=== PATIENT | male | born 1980 | race Caucasian/White ===

== ENCOUNTER 2017-02-10 10:10 | Observation (INO) | payer OTHER ==
[~2017-02-10] VITALS: Ht 162.6 cm; Wt 51.5 kg
--- NOTE | 2017-02-10 10:17 | PHYS DOC ---
Adult General Chief Complaint Chief Complaint: SEIZURE HPI HPI Patient is a 36 year old male who presents with seizure activity and a code STEMI. EMS was called for seizure activity. Patient states she has a history of seizure disorders and is supposed be on Depakote however his been taking his girlfriend's seizure medicines because he doesn't feel like Depakote is working. He denies any chest pain, nausea vomiting or shortness of breath. He states he has a seizure couple times a month but today EMS was called because there was some blood on his pajamas his girlfriend did know where they came from. EMS activated code STEMI because they saw ST elevations in V1 and V2. Review of Systems Review of Systems Constitutional: Denies fever or chills [] Eyes: Denies change in visual acuity, redness, or eye pain [] HENT: Denies nasal congestion or sore throat [] Respiratory: Denies cough or shortness of breath [] Cardiovascular: No additional information not addressed in HPI [] GI: Denies abdominal pain, nausea, vomiting, bloody stools or diarrhea [] : Denies dysuria or hematuria [] Musculoskeletal: Denies back pain or joint pain [] Integument: Denies rash or skin lesions [] Neurologic: Denies headache, focal weakness or sensory changes [] Endocrine: Denies polyuria or polydipsia [] Current Medications Current Medications Current Medications Medications (Trade) Dose Ordered Sig/Cindy Start Time Stop Time Status Last Admin Dose Admin Hydralazine HCl (Apresoline) 20 mg 1X ONCE 02/10/17 12:00 02/10/17 12:01 DC 02/10/17 11:53 20 MG Labetalol HCl (Normodyne) 20 mg PRN Q2HR PRN 02/10/17 12:15 02/10/17 12:36 20 MG Ondansetron HCl (Zofran) 4 mg PRN Q8HRS PRN 02/10/17 13:00 02/11/17 12:59 Sodium Chloride 1,000 ml @ 1,000 mls/hr 1X ONCE 02/10/17 12:00 02/10/17 12:59 DC 02/10/17 11:52 1,000 MLS/HR Allergies Allergies Allergies Coded Allergies Type Severity Reaction Last Updated Verified No Known Drug Allergies 02/10/17 No Physical Exam Physical Exam Constitutional: Well developed, well nourished, no acute distress, non-toxic appearance. [] HENT: Normocephalic, atraumatic, bilateral external ears normal, oropharynx moist, no oral exudates, nose normal. [] Eyes: PERRLA, EOMI, conjunctiva normal, no discharge. [] Neck: Normal range of motion, no tenderness, supple, no stridor. [] Cardiovascular:Heart rate regular rhythm, no murmur [] Lungs & Thorax: Bilateral breath sounds clear to auscultation [] Abdomen: Bowel sounds normal, soft, no tenderness, no masses, no pulsatile masses. [] Skin: Warm, dry, no erythema, no rash. [] Back: No tenderness, no CVA tenderness. [] Extremities: No tenderness, no cyanosis, no clubbing, ROM intact, no edema. [] Neurologic: Alert and oriented X 3, normal motor function, normal sensory function, no focal deficits noted. [] Psychologic: Affect normal, judgement normal, mood normal. [] Current Patient Data Vital Signs Vital Signs Date Time Temp Pulse Resp B/P (MAP) Pulse Ox O2 Delivery O2 Flow Rate FiO2 02/10/17 12:36 134 170/97 02/10/17 12:33 18 97 Room Air 02/10/17 10:15 98.6 98.6 Lab Values Laboratory Tests Test 02/10/17 10:16 02/10/17 10:50 White Blood Count 6.4 x10^3/uL (4.0-11.0) Red Blood Count 4.43 x10^6/uL (4.30-5.70) Hemoglobin 14.1 g/dL (13.0-17.5) Hematocrit 40.1 % (39.0-53.0) Mean Corpuscular Volume 91 fL (79-100) Mean Corpuscular Hemoglobin 32 pg (25-35) Mean Corpuscular Hemoglobin Concent 35 g/dL (31-37) Red Cell Distribution Width 12.8 % (11.5-14.5) Platelet Count 180 x10^3/uL (140-400) Neutrophils (%) (Auto) 69 % (31-73) Lymphocytes (%) (Auto) 21 % (24-48) L Monocytes (%) (Auto) 6 % (0-9) Eosinophils (%) (Auto) 3 % (0-3) Basophils (%) (Auto) 1 % (0-3) Neutrophils # (Auto) 4.5 x10^3uL (1.8-7.7) Lymphocytes # (Auto) 1.4 x10^3/uL (1.0-4.8) Monocytes # (Auto) 0.4 x10^3/uL (0.0-1.1) Eosinophils # (Auto) 0.2 x10^3/uL (0.0-0.7) Basophils # (Auto) 0.1 x10^3/uL (0.0-0.2) D-Dimer (Jessie) 1.06 ug/mlFEU (0.00-0.50) H Sodium Level 142 mmol/L (136-145) Potassium Level 3.8 mmol/L (3.5-5.1) Chloride Level 110 mmol/L (98-107) H Carbon Dioxide Level 26 mmol/L (21-32) Anion Gap 6 (6-14) Blood Urea Nitrogen 18 mg/dL (8-26) Creatinine 1.3 mg/dL (0.7-1.3) Estimated GFR (Cockcroft-Gault) 62.8 Glucose Level 116 mg/dL (70-99) H Lactic Acid Level 2.7 mmol/L (0.4-2.0) H Calcium Level 9.0 mg/dL (8.5-10.1) Total Bilirubin 0.3 mg/dL (0.2-1.0) Direct Bilirubin 0.1 mg/dL (0.0-0.2) Aspartate Amino Transferase (AST) 36 U/L (15-37) Alanine Aminotransferase (ALT) 34 U/L (16-63) Alkaline Phosphatase 104 U/L (46-116) Creatine Kinase 92 U/L (39-308) Creatine Kinase MB (Mass) 1.5 ng/mL (0.0-3.6) Creatine Kinase MB Relative Index 1.6 % (0-4) Troponin I Quantitative < 0.017 ng/mL (0.000-0.055) Total Protein 5.7 g/dL (6.4-8.2) L Albumin 2.8 g/dL (3.4-5.0) L Urine Opiates Screen Neg (NEG) Urine Methadone Screen Neg (NEG) Urine Barbiturates Neg (NEG) Urine Phencyclidine Screen Neg (NEG) Urine Amphetamine/Methamphetamine Neg (NEG) Urine Benzodiazepines Screen Neg (NEG) Urine Cocaine Screen Neg (NEG) Urine Cannabinoids Screen Neg (NEG) Urine Ethyl Alcohol Neg (NEG) Laboratory Tests 02/10/17 10:16 Laboratory Tests 02/10/17 10:16 EKG EKG EKG shows sinus tachycardia with a rate of 105 bpm with early repolarization in V2 V3 and [address] elevations in V2 V3, no reciprocal changes, no T-wave inversions noted, normal axis, as interpreted by me. Radiology/Procedures Radiology/Procedures [] Impressions: Accelerated hypertension Seizure disorder Course & Med Decision Making Course & Med Decision Making Pertinent Labs and Imaging studies reviewed. (See chart for details) Patient presented alert and oriented 3 after a seizure. He had an elevated lactic acid. He was tachycardic and received 2 L of normal saline in his blood pressures been elevated greater than 200. He was given hydralazine 2 and then labetalol after his urine drug screen came back negative. He is coughing up a little bit of blood which is likely from his nose but he does have an elevated d -dimer so we will go ahead and perform a CT Angio which is pending at this time. Patient be admitted the hospitalist with cardiology consultation. CT angios pending at this time. My Critical Care: Critical Care Time: 55 minutes Treatments/Evaluations: Close monitoring and treatment of unstable vital signs, cardiorespiratory, and neurologic status, while maintaining tight balance of fluid, respiratory, and cardiac interventions. Dragon Disclaimer Dragon Disclaimer This electronic medical record was generated, in whole or in part, using a voice recognition dictation system. THOM PUGH MD Feb 10, 2017 10:17
[2017-02-10] MEDS ORDERED: IV NORMAL SALINE 1000ML BAG 1,000 ML IV ONE ×2 (10:30→12:00)
[2017-02-10 10:42] LABS: BASO # 0.1 x10^3/uL (0.0-0.2); BASO % 1 % (0-3); EOS % 3 % (0-3); HEMATOCRIT 40.1 % (39.0-53.0); HEMOGLOBIN 14.1 g/dL (13.0-17.5); LYMPH # 1.4 x10^3/uL (1.0-4.8); LYMPH % 21 % (24-48); MEAN CORPUSCULAR HEMOGLOBIN 32 pg (25-35); MEAN CORPUSCULAR HGB CONC 35 g/dL (31-37); MEAN CORPUSCULAR VOLUME 91 fL (79-100); MONO % 6 % (0-9); NEUT % 69 % (31-73); PLATELET COUNT 180 x10^3/uL (140-400); RED BLOOD COUNT 4.43 x10^6/uL (4.30-5.70); RED CELL DISTRIBUTION WIDTH 12.8 % (11.5-14.5); WHITE BLOOD COUNT 6.4 x10^3/uL (4.0-11.0)
--- NOTE | 2017-02-10 10:47 | EKG ---
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
[2017-02-10 10:49] LABS: CREATININE 1.3 mg/dL (0.7-1.3); GFR 62.8; POTASSIUM 3.8 mmol/L (3.5-5.1)
[2017-02-10 11:01] LABS: ALBUMIN 2.8 g/dL (3.4-5.0); DIRECT BILIRUBIN 0.1 mg/dL (0.0-0.2); TOTAL BILIRUBIN 0.3 mg/dL (0.2-1.0); TOTAL PROTEIN 5.7 g/dL (6.4-8.2)
[2017-02-10] MEDS ORDERED: PERA2TAB PO (11:07)
[2017-02-10] MEDS ORDERED: DIVA500T2 PO (11:07)
[2017-02-10 11:13] LABS: BARBITURATES NEG (NEG); BENZODIAZEPINES NEG (NEG); CANNABINOIDS NEG (NEG); COCAINE NEG (NEG); METHADONE NEG (NEG); OPIATES NEG (NEG); PHENCYCLIDINE NEG (NEG)
--- NOTE | 2017-02-10 11:15 | ACF ---
Admission Forms Criteria SEIZURE Clinical Indications for Admission to Inpatient Care (Place 'X' for any and all applicable criteria): Admission is indicated for seizure and ANY ONE of the following(1)(2)(3)(4)(5): [ ]I. Inpatient admission required rather than observation care (Also use Seizure: Observation Care Criteria as appropriate) because of ANY ONE of the following: [ ]a) Altered mental status that is severe or persistent [ ]b) New focal neurologic deficit that is severe or persistent [ ]c) Metabolic disorder (eg, hypoglycemia, hyponatremia) that is severe or persistent [ ]d) Recurrent seizure [ ]e) Outpatient antiseizure regimen cannot be established (eg , patient cannot tolerate medication, initiation requires inpatient care) [ ]f) Need for ongoing intravenous infusion of antiseizure medication [ ]g) Cardiac arrhythmias of immediate concern [ ]h) Cerebral bleeding, hydrocephalus, or vasospasm monitoring (14) [ ]i) Increased intracranial pressure or cerebral edema monitoring (15) [ ]j) Other treatment or monitoring requiring inpatient admission [ ]II. Status epilepticus [A] or repetitive seizures not controlled with emergent treatment (6)(8) [ ]III. Brain disorder (eg, tumor, edema, and hydrocephalus) that requiring monitoring or intervention available only at inpatient level of care. [ ]IV. Brain insult (eg, severe trauma, stroke, drug toxicity, or withdrawal) that requires monitoring or intervention available only at inpatient level of care (10)(11) Extended stay beyond goal length of stay may be needed for (22) [ ]a) Complications of status epilepticus [ ]b) Refractory status epilepticus [ ]c) Etiology-specific therapy for conditions such as RN CLINICAL COORDINATOR infection, head injury,eclampsia, severe metabolic abnormalities, and brain tumor [ ]d) Residual neurologic damage, [ ]e) Initiation of significant change to anticonvulsant treatment [ ]f) Older patients (65 years or older) [ ]g) Patient requiring intubation (eg, to protect airway) The original [employer] content created by [employer] has been revised. The portions of the content which have been revised are identified through the use of italic text or in bold, and [facility] [employer] has neither reviewed nor approved the modified material. All other unmodified content is copyright [facility] [employer]. Please see references footnoted in the original [facility] edition 2016 KESHIA SOLER Feb 10, 2017 11:15
[2017-02-10] MEDS ORDERED: hydrALAZINE 20 MG/ML VIAL. IVP ONE ×2 (11:30→12:00)
[2017-02-10] MEDS: LABETALOL 20 MG/4 ML DISP.SYRIN. IVP PRN (12:36)
[2017-02-10 12:44] LABS: CKMB MASS 1.5 ng/mL (0.0-3.6)
[2017-02-10] MEDS ORDERED: ONDANSETRON PF 4 MG/2 ML VIAL. IV PRN (13:00)
--- NOTE | 2017-02-10 13:00 | PDOC2 ---
CARDIAC CONSULT DATE OF CONSULT Date of Consult DATE: 02/10/17 TIME: 12:56 REASON FOR CONSULT Reason for Consult: HTN REFERRING PHYSICIAN Referring Physician: Feli SOURCE Source: Chart review, Patient HISTORY OF PRESENT ILLNESS HISTORY OF PRESENT ILLNESS This is a pleasant 36 yo male admitted for complains of spitting out blood and apparent seizure. Reports that he is significant for grandmal seziures and the last time he saw a neurologist was 2 months ago (Dr. Farmer) and the last time he had seizure prior was 3-4 weeks ago which he also fell. This morning he felt that he was a little confuse and felt that a seizure was coming on while preparing waffles for his kids. He does not recall going to the bathroom but was noted by his daughter he fell backwards and to the floor and his head was shaking, he was also noted that his lips were slightly turning blue. It was uncertain the duration of this event. After his head shaking was done, he regained consciousness but was still confuse and sat on the chair. He noted that he was coughing out blood. Upon admission he was also noted with sinus tachycardia and high blood pressure. He also has been complaining of mid chest pain which is reproducible with palpation and deep breathing. He is suppose to take depakote but he takes this PRN since it does not work He has been taking perapanel which is a seizure med for his girlfriend but the girlfriend is not taking it so he has been taking instead. He also was taking 2 BP meds which he stopped taking 2 months ago. He has hx of cerebral palsy, seizure since 3 yo, murmur, no prior VTE, childhood heart disease. PAST MEDICAL HISTORY Cardiovascular: Other (murmur) Pulmonary: No pertinent hx CENTRAL NERVOUS SYSTEM: Seizure (grandmal) GI: No pertinent hx Heme/Onc: No pertinent hx Hepatobiliary: No pertinent hx Psych: No pertinent hx Musculoskeletal: Other (No ) Rheumatologic: No pertinent hx Infectious disease: No pertinent hx ENT: No pertinent hx Renal/: No pertinent hx Endocrine: No pertinent hx Dermatology: No pertinent hx PAST SURGICAL HISTORY Past Surgical History: No pertinent history SOCIAL HISTORY Smoke: No ALCOHOL: occassional Drugs: None Lives: with Family CURRENT MEDICATIONS CURRENT MEDICATIONS Current Medications Medications (Trade) Dose Ordered Sig/Cindy Route PRN Reason Start Time Stop Time Status Last Admin Dose Admin Sodium Chloride 1,000 ml @ 1,000 mls/hr 1X ONCE IV 02/10/17 10:30 02/10/17 11:29 DC 02/10/17 10:41 Hydralazine HCl (Apresoline) 10 mg 1X ONCE IVP 02/10/17 11:30 02/10/17 11:31 DC 02/10/17 11:21 Sodium Chloride 1,000 ml @ 1,000 mls/hr 1X ONCE IV 02/10/17 12:00 02/10/17 12:59 02/10/17 11:52 Hydralazine HCl (Apresoline) 20 mg 1X ONCE IVP 02/10/17 12:00 02/10/17 12:01 DC 02/10/17 11:53 Labetalol HCl (Normodyne) 20 mg PRN Q2HR PRN IVP HYPERTENSION, SEE COMMENTS 02/10/17 12:15 02/10/17 12:36 ALLERGIES ALLERGIES: Coded Allergies: No Known Drug Allergies (Unverified , 02/10/17) ROS Review of System 14 point ROS evaluated with pertinent positives noted per HPI PHYSICAL EXAM General: Alert, Oriented X3, Cooperative, No acute distress HEENT: Atraumatic, Mucous membr. moist/pink Lungs: Clear to auscultation, Normal air movement Heart: Regular rate (sinus tachycardia), Normal S1, Normal S2, Other (S3; 2/6 systolic murmur to Apical region) Abdomen: Soft, No tenderness Extremities: No cyanosis, No edema Skin: No breakdown, No significant lesion Neuro: Normal speech, Sensation intact Psych/Mental Status: Mental status NL, Mood NL MUSCULOSKELETAL: Full range of motion without pain VITALS VITALS Vital Signs Date Time Temp Pulse Resp B/P (MAP) Pulse Ox O2 Delivery O2 Flow Rate FiO2 02/10/17 12:36 134 170/97 02/10/17 12:33 18 97 Room Air 02/10/17 10:15 98.6 98.6 LABS Lab: Laboratory Tests Test 02/10/17 10:16 02/10/17 10:50 White Blood Count 6.4 x10^3/uL (4.0-11.0) Red Blood Count 4.43 x10^6/uL (4.30-5.70) Hemoglobin 14.1 g/dL (13.0-17.5) Hematocrit 40.1 % (39.0-53.0) Mean Corpuscular Volume 91 fL (79-100) Mean Corpuscular Hemoglobin 32 pg (25-35) Mean Corpuscular Hemoglobin Concent 35 g/dL (31-37) Red Cell Distribution Width 12.8 % (11.5-14.5) Platelet Count 180 x10^3/uL (140-400) Neutrophils (%) (Auto) 69 % (31-73) Lymphocytes (%) (Auto) 21 % (24-48) Monocytes (%) (Auto) 6 % (0-9) Eosinophils (%) (Auto) 3 % (0-3) Basophils (%) (Auto) 1 % (0-3) Neutrophils # (Auto) 4.5 x10^3uL (1.8-7.7) Lymphocytes # (Auto) 1.4 x10^3/uL (1.0-4.8) Monocytes # (Auto) 0.4 x10^3/uL (0.0-1.1) Eosinophils # (Auto) 0.2 x10^3/uL (0.0-0.7) Basophils # (Auto) 0.1 x10^3/uL (0.0-0.2) D-Dimer (Jessie) 1.06 ug/mlFEU (0.00-0.50) Sodium Level 142 mmol/L (136-145) Potassium Level 3.8 mmol/L (3.5-5.1) Chloride Level 110 mmol/L (98-107) Carbon Dioxide Level 26 mmol/L (21-32) Anion Gap 6 (6-14) Blood Urea Nitrogen 18 mg/dL (8-26) Creatinine 1.3 mg/dL (0.7-1.3) Estimated GFR (Cockcroft-Gault) 62.8 Glucose Level 116 mg/dL (70-99) Lactic Acid Level 2.7 mmol/L (0.4-2.0) Calcium Level 9.0 mg/dL (8.5-10.1) Total Bilirubin 0.3 mg/dL (0.2-1.0) Direct Bilirubin 0.1 mg/dL (0.0-0.2) Aspartate Amino Transf (AST/SGOT) 36 U/L (15-37) Alanine Aminotransferase (ALT/SGPT) 34 U/L (16-63) Alkaline Phosphatase 104 U/L (46-116) Creatine Kinase 92 U/L (39-308) Creatine Kinase MB (Mass) 1.5 ng/mL (0.0-3.6) Creatine Kinase MB Relative Index 1.6 % (0-4) Troponin I Quantitative < 0.017 ng/mL (0.000-0.055) Total Protein 5.7 g/dL (6.4-8.2) Albumin 2.8 g/dL (3.4-5.0) Urine Opiates Screen Neg (NEG) Urine Methadone Screen Neg (NEG) Urine Barbiturates Neg (NEG) Urine Phencyclidine Screen Neg (NEG) Urine Amphetamine/Methamphetamine Neg (NEG) Urine Benzodiazepines Screen Neg (NEG) Urine Cocaine Screen Neg (NEG) Urine Cannabinoids Screen Neg (NEG) Urine Ethyl Alcohol Neg (NEG) ASSESSMENT/PLAN ASSESSMENT/PLAN 1. Accelerated HTN: last BP meds taken 2 months ago 2. Sinus tachycardia: reactive 3. Atypical CP: MSK, likely r/t to fall 4. Seizure/post ictal state: hx of grandmal. 5. Hemoptysis: possible tongue laceration? from seizure. Elevated DDIMER. Positive for tachycardia. Being ruled out for PE. 6. Hx of Murmur 7. Noncompliance 8. Nontraumatic Fall: r/t seizure Recommendations 1. TTE today, CTA pending 2. Start on coreg, lisinopril. 3. TSH. lipid panel 4. Discussed adherence to meds. 5. Neurology consult Problems: NEMESIO TREJO APRN Feb 10, 2017 12:59
[2017-02-10] MEDS ORDERED: CONTRAST GIVEN MC PRN (13:15)
[2017-02-10] MEDS ORDERED: IOHEXOL 300 MG/ML 75 ML VIAL IV ONE (13:30)
[2017-02-10] MEDS ORDERED: MAGNESIUM SULFATE 2GM 50 ML IV ONE (14:00)
--- NOTE | 2017-02-10 14:05 | RAD ---
CTA of the chest with and without contrast Clinical indications: Elevated d-dimer. Shortness of breath. Spitting up of blood. Grand mal seizures. Technique: Noncontrast axial localizer was performed. After IV infusion of 75 cc of Omnipaque 300, helical CT scanning of the chest was performed using the CT pulmonary embolism protocol. A coronal MIP reconstruction was generated. PQRS Compliance Statement: One or more of the following individualized dose reduction techniques were utilized for this examination: 1. Automated exposure control 2. Adjustment of the mA and/or kV according to patient size 3. Use of iterative reconstruction technique Findings: No pulmonary embolism is evident. No focal aneurysmal dilatation or dissection of the thoracic aorta is seen. The heart size is at the upper limits of normal. No pericardial effusion is seen. No enlarged thoracic lymphadenopathy is seen. No adrenal mass is evident. Cysts or hemangiomas of the upper aspect of the spleen are seen. Bilateral 5 lobe groundglass lung infiltrates are seen. No pleural effusion or pneumothorax is evident. The proximal bronchial tree is patent. No rib fracture or compression fracture is seen. IMPRESSION: No pulmonary embolism. Bilateral 5 lobe groundglass lung infiltrates which could represent aspiration pneumonitis or pulmonary edema or pneumonia.
--- NOTE | 2017-02-10 14:17 | PDOC2 ---
NEUROLOGY CONSULT Date of Admission Date of Admission DATE: 02/10/17 TIME: 14:10 Reason for Consult Reason for Consult: Seizures Referring Physician Referring Physician: Dr. Liang PCP: Dr. Alexandra Source Source: Caregiver, Chart review, Patient History of Present Illness History of Present Illness The patient is a 36-year-old right-handed male admitted after a seizure this morning and found to have hypertension. He has had seizures since age 3. He describes generalized convulsions. He has been maintained on Depakote for as long as he remembers. He would like to try a different medication and indeed has stopped the Depakote and has been using his girlfriend's Fycompa. The patient was seeing Dr. Farmer who obtained an EEG, showing findings consistent with epilepsy as well as the patient knows. The patient is planning to go to neurology. There is no history of stroke or head injury. Past Medical History Cardiovascular: HTN CENTRAL NERVOUS SYSTEM: Seizure Past Surgical History Past Surgical History: No pertinent history Family History Family History: No pertinent hx (negative for epilepsy) Social History Social History He has a girlfriend, rare alcohol, no tobacco or street drugs Current Medications Current Medications Current Medications Sodium Chloride 1,000 ml @ 1,000 mls/hr 1X ONCE IV Last administered on 10:41; Start 02/10/17 at 10:30; Stop 02/10/17 at 11:29; Status DC Hydralazine HCl (Apresoline) 10 mg 1X ONCE IVP Last administered on 02/10/17 11:21; Start 02/10/17 at 11:30; Stop 02/10/17 at 11:31; Status DC Sodium Chloride 1,000 ml @ 1,000 mls/hr 1X ONCE IV Last administered on 11:52; Start 02/10/17 at 12:00; Stop 02/10/17 at 12:59; Status DC Hydralazine HCl (Apresoline) 20 mg 1X ONCE IVP Last administered on 02/10/17 11:53; Start 02/10/17 at 12:00; Stop 02/10/17 at 12:01; Status DC Labetalol HCl (Normodyne) 20 mg PRN Q2HR PRN IVP HYPERTENSION, SEE COMMENTS Last administered on 02/10/17 12:36; Start 02/10/17 at 12:15 Ondansetron HCl (Zofran) 4 mg PRN Q8HRS PRN IV NAUSEA/VOMITING; Start 02/10/17 at 13:00; Stop 02/11/17 at 12:59 Iohexol (Omnipaque 300 Mg/ml) 75 ml 1X ONCE IV Last administered on 02/10/17 13:24; Start 02/10/17 at 13:30; Stop 02/10/17 at 13:31; Status DC Info (Do NOT chart on this entry -- for MONITORING) 1 each PRN DAILY PRN MC SEE COMMENTS; Start 02/10/17 at 13:15; Stop 02/12/17 at 13:14 Magnesium Sulfate/ Dextrose 50 ml @ 25 mls/hr 1X ONCE IV Last administered on 02/10/17 13:49; Start 02/10/17 at 14:00; Stop 02/10/17 at 15:59 Carvedilol (Coreg) 6.25 mg BIDWMEALS PO ; Start 02/10/17 at 17:00 Lisinopril (Prinivil) 20 mg DAILY PO ; Start 02/10/17 at 14:30 Active Scripts Active Reported Fycompa (Perampanel) 2 Mg Tablet 2 Mg PO Depakote (Divalproex Sodium) 500 Mg Tablet.dr 1 Tab PO BID Allergies Allergies: Coded Allergies: No Known Drug Allergies (Unverified , 02/10/17) ROS Review of System Patient denies fevers, chills, weight loss, dyspnea, angina, abdominal pain, change in bowels, or dysuria. 14 point review of systems is negative. Physical Exam Physical Examination PHYSICAL EXAMINATION: Vital signs: see above. General appearance is normal and in no acute distress. HEENT: Normocephalic although he does appear to have a very large cranium and a small almost elfin face, nontraumatic. Eyes, nose, ears, and throat are unremarkable. Neck is supple. No lymphadenopathy. No bruits are heard over the carotid artery. No crepitus. NEUROLOGICAL EXAMINATION: Mental Status Examination: Alert. Oriented to time, place, and person. Answers questions and follows commends. Pupils are equal round and reactive to light and accommodation. Extraocular movements are intact. Visual field exam shows no defect on the direct confrontation. No motor or sensory deficits on the facial exam. Uvula in the midline and the soft palate elevated symmetrically. No deviation of the tongue to any direction. Gross hearing is normal. Shoulder shrug normal. Muscle tone is normal. Muscle strength is 5/5. Deep tendon reflexes are 2+ all around. Plantar reflex is with flexion response bilaterally. Tnmtna-af-wzst test performance is accurate. Tandem walk test is accurate. Alternative movements are accurate. Romberg test is negative. Gait is normal. Sensory exam shows no deficits. No cerebellar signs are elicited. Vitals VITALS Vital Signs Date Time Temp Pulse Resp B/P (MAP) Pulse Ox O2 Delivery O2 Flow Rate FiO2 02/10/17 12:36 134 170/97 02/10/17 12:33 18 97 Room Air 02/10/17 10:15 98.6 98.6 Labs Labs Laboratory Tests Test 02/10/17 10:16 02/10/17 10:50 White Blood Count 6.4 x10^3/uL (4.0-11.0) Red Blood Count 4.43 x10^6/uL (4.30-5.70) Hemoglobin 14.1 g/dL (13.0-17.5) Hematocrit 40.1 % (39.0-53.0) Mean Corpuscular Volume 91 fL (79-100) Mean Corpuscular Hemoglobin 32 pg (25-35) Mean Corpuscular Hemoglobin Concent 35 g/dL (31-37) Red Cell Distribution Width 12.8 % (11.5-14.5) Platelet Count 180 x10^3/uL (140-400) Neutrophils (%) (Auto) 69 % (31-73) Lymphocytes (%) (Auto) 21 % (24-48) Monocytes (%) (Auto) 6 % (0-9) Eosinophils (%) (Auto) 3 % (0-3) Basophils (%) (Auto) 1 % (0-3) Neutrophils # (Auto) 4.5 x10^3uL (1.8-7.7) Lymphocytes # (Auto) 1.4 x10^3/uL (1.0-4.8) Monocytes # (Auto) 0.4 x10^3/uL (0.0-1.1) Eosinophils # (Auto) 0.2 x10^3/uL (0.0-0.7) Basophils # (Auto) 0.1 x10^3/uL (0.0-0.2) D-Dimer (Jessie) 1.06 ug/mlFEU (0.00-0.50) Sodium Level 142 mmol/L (136-145) Potassium Level 3.8 mmol/L (3.5-5.1) Chloride Level 110 mmol/L (98-107) Carbon Dioxide Level 26 mmol/L (21-32) Anion Gap 6 (6-14) Blood Urea Nitrogen 18 mg/dL (8-26) Creatinine 1.3 mg/dL (0.7-1.3) Estimated GFR (Cockcroft-Gault) 62.8 Glucose Level 116 mg/dL (70-99) Lactic Acid Level 2.7 mmol/L (0.4-2.0) Calcium Level 9.0 mg/dL (8.5-10.1) Magnesium Level 1.6 mg/dL (1.8-2.4) Total Bilirubin 0.3 mg/dL (0.2-1.0) Direct Bilirubin 0.1 mg/dL (0.0-0.2) Aspartate Amino Transf (AST/SGOT) 36 U/L (15-37) Alanine Aminotransferase (ALT/SGPT) 34 U/L (16-63) Alkaline Phosphatase 104 U/L (46-116) Creatine Kinase 92 U/L (39-308) Creatine Kinase MB (Mass) 1.5 ng/mL (0.0-3.6) Creatine Kinase MB Relative Index 1.6 % (0-4) Troponin I Quantitative < 0.017 ng/mL (0.000-0.055) Total Protein 5.7 g/dL (6.4-8.2) Albumin 2.8 g/dL (3.4-5.0) Thyroid Stimulating Hormone (TSH) 1.261 uIU/mL (0.358-3.74) Urine Opiates Screen Neg (NEG) Urine Methadone Screen Neg (NEG) Urine Barbiturates Neg (NEG) Urine Phencyclidine Screen Neg (NEG) Urine Amphetamine/Methamphetamine Neg (NEG) Urine Benzodiazepines Screen Neg (NEG) Urine Cocaine Screen Neg (NEG) Urine Cannabinoids Screen Neg (NEG) Urine Ethyl Alcohol Neg (NEG) Laboratory Tests Test 02/10/17 10:16 02/10/17 10:50 White Blood Count 6.4 x10^3/uL (4.0-11.0) Red Blood Count 4.43 x10^6/uL (4.30-5.70) Hemoglobin 14.1 g/dL (13.0-17.5) Hematocrit 40.1 % (39.0-53.0) Mean Corpuscular Volume 91 fL (79-100) Mean Corpuscular Hemoglobin 32 pg (25-35) Mean Corpuscular Hemoglobin Concent 35 g/dL (31-37) Red Cell Distribution Width 12.8 % (11.5-14.5) Platelet Count 180 x10^3/uL (140-400) Neutrophils (%) (Auto) 69 % (31-73) Lymphocytes (%) (Auto) 21 % (24-48) Monocytes (%) (Auto) 6 % (0-9) Eosinophils (%) (Auto) 3 % (0-3) Basophils (%) (Auto) 1 % (0-3) Neutrophils # (Auto) 4.5 x10^3uL (1.8-7.7) Lymphocytes # (Auto) 1.4 x10^3/uL (1.0-4.8) Monocytes # (Auto) 0.4 x10^3/uL (0.0-1.1) Eosinophils # (Auto) 0.2 x10^3/uL (0.0-0.7) Basophils # (Auto) 0.1 x10^3/uL (0.0-0.2) D-Dimer (Jessie) 1.06 ug/mlFEU (0.00-0.50) Sodium Level 142 mmol/L (136-145) Potassium Level 3.8 mmol/L (3.5-5.1) Chloride Level 110 mmol/L (98-107) Carbon Dioxide Level 26 mmol/L (21-32) Anion Gap 6 (6-14) Blood Urea Nitrogen 18 mg/dL (8-26) Creatinine 1.3 mg/dL (0.7-1.3) Estimated GFR (Cockcroft-Gault) 62.8 Glucose Level 116 mg/dL (70-99) Lactic Acid Level 2.7 mmol/L (0.4-2.0) Calcium Level 9.0 mg/dL (8.5-10.1) Magnesium Level 1.6 mg/dL (1.8-2.4) Total Bilirubin 0.3 mg/dL (0.2-1.0) Direct Bilirubin 0.1 mg/dL (0.0-0.2) Aspartate Amino Transf (AST/SGOT) 36 U/L (15-37) Alanine Aminotransferase (ALT/SGPT) 34 U/L (16-63) Alkaline Phosphatase 104 U/L (46-116) Creatine Kinase 92 U/L (39-308) Creatine Kinase MB (Mass) 1.5 ng/mL (0.0-3.6) Creatine Kinase MB Relative Index 1.6 % (0-4) Troponin I Quantitative < 0.017 ng/mL (0.000-0.055) Total Protein 5.7 g/dL (6.4-8.2) Albumin 2.8 g/dL (3.4-5.0) Thyroid Stimulating Hormone (TSH) 1.261 uIU/mL (0.358-3.74) Urine Opiates Screen Neg (NEG) Urine Methadone Screen Neg (NEG) Urine Barbiturates Neg (NEG) Urine Phencyclidine Screen Neg (NEG) Urine Amphetamine/Methamphetamine Neg (NEG) Urine Benzodiazepines Screen Neg (NEG) Urine Cocaine Screen Neg (NEG) Urine Cannabinoids Screen Neg (NEG) Urine Ethyl Alcohol Neg (NEG) Assessment/Plan Assessment/Plan Impression: Long-standing epilepsy, breakthrough seizure today. Hypertension, "rule-out" MA Recommendations: I discussed risks, benefits, alternatives, side effects and will start levetiracetam 500 mg twice a day I do not see a need to repeat EEG or MRI studies. Workup per cardiology. Thank you for letting me help with the patient's care. ARCELIA ADHIKARI MD Feb 10, 2017 14:17
[2017-02-10] MEDS: LISINOPRIL 20 MG TABLET PO SCH (14:25)
[2017-02-10 14:29] LABS: CHOLESTEROL/HDL RATIO 3.1
[2017-02-10] MEDS ORDERED: AMLO2.5T PO (15:06)
[2017-02-10] MEDS ORDERED: TRIA1TAB5 PO (15:10)
[2017-02-10] MEDS ORDERED: AMLO10TA2 PO (15:10)
[2017-02-10] MEDS: levETIRAcetam 500 MG TABLET PO SCH ×2 (15:19→20:56)
--- NOTE | 2017-02-10 15:20 | PDOC1 ---
History and Physical Date of Admission Date of Admission DATE: 02/10/17 TIME: 15:19 Identification/Chief Complaint Chief Complaint Seizure Problems: Source Source: Caregiver, Patient History of Present Illness History of Present Illness Mr Caldera is a 36 y/o man with epilepsy since age 3, whoo presented to the ER with gand mal seizure. His girlfriend was more concerned about him "spitting up blood" than the seizure itself. She states that he recently has had bleeding from the mouth with sz, but never in significant amounts. This was decidedly different than before, prompting ER visit. His last sz was about 1 month ago; he has been on depakote for a long time. He himself does not recall any of the episode. EMS on site noted him to be postictal, which had cleared by the time he presented to the ER. His blood pressure was found to be significantly elevated, not responding to labetalol or hydralazine PRN, and he was admitted fir hypertensive urgency. Past Medical History Cardiovascular: HTN Pulmonary: No pertinent hx CENTRAL NERVOUS SYSTEM: Seizure GI: No pertinent hx Heme/Onc: No pertinent hx Hepatobiliary: No pertinent hx Psych: No pertinent hx Musculoskeletal: Other (No ) Rheumatologic: No pertinent hx Infectious disease: No pertinent hx ENT: No pertinent hx Renal/: No pertinent hx Endocrine: No pertinent hx Dermatology: No pertinent hx Past Surgical History Past Surgical History: No pertinent history Family History Family History: Heart Disease Social History Smoke: No ALCOHOL: occassional Drugs: None Current Problem List Problem List Problems Medical Problems: (1) Hypertensive urgency Status: Acute Problems: Current Medications Current Medications Current Medications Sodium Chloride 1,000 ml @ 1,000 mls/hr 1X ONCE IV Last administered on 10:41; Start 02/10/17 at 10:30; Stop 02/10/17 at 11:29; Status DC Hydralazine HCl (Apresoline) 10 mg 1X ONCE IVP Last administered on 02/10/17 11:21; Start 02/10/17 at 11:30; Stop 02/10/17 at 11:31; Status DC Sodium Chloride 1,000 ml @ 1,000 mls/hr 1X ONCE IV Last administered on 11:52; Start 02/10/17 at 12:00; Stop 02/10/17 at 12:59; Status DC Hydralazine HCl (Apresoline) 20 mg 1X ONCE IVP Last administered on 02/10/17 11:53; Start 02/10/17 at 12:00; Stop 02/10/17 at 12:01; Status DC Labetalol HCl (Normodyne) 20 mg PRN Q2HR PRN IVP HYPERTENSION, SEE COMMENTS Last administered on 02/10/17 12:36; Start 02/10/17 at 12:15 Ondansetron HCl (Zofran) 4 mg PRN Q8HRS PRN IV NAUSEA/VOMITING; Start 02/10/17 at 13:00; Stop 02/11/17 at 12:59 Iohexol (Omnipaque 300 Mg/ml) 75 ml 1X ONCE IV Last administered on 02/10/17 13:24; Start 02/10/17 at 13:30; Stop 02/10/17 at 13:31; Status DC Info (Do NOT chart on this entry -- for MONITORING) 1 each PRN DAILY PRN MC SEE COMMENTS; Start 02/10/17 at 13:15; Stop 02/12/17 at 13:14 Magnesium Sulfate/ Dextrose 50 ml @ 25 mls/hr 1X ONCE IV Last administered on 02/10/17 13:49; Start 02/10/17 at 14:00; Stop 02/10/17 at 15:59 Carvedilol (Coreg) 6.25 mg BIDWMEALS PO ; Start 02/10/17 at 17:00 Lisinopril (Prinivil) 20 mg DAILY PO Last administered on 02/10/17 14:25; Start 02/10/17 at 14:30 Levetiracetam (Keppra) 500 mg BID PO ; Start 02/10/17 at 14:30 Active Scripts Active Reported Amlodipine Besylate 10 Mg Tablet 10 Mg PO DAILY Triamterene-Hctz 75-50 Mg Tab (Triamterene/Hydrochlorothiazid) 1 Each Tablet 1 Tab PO DAILY Fycompa (Perampanel) 2 Mg Tablet 2 Mg PO Depakote (Divalproex Sodium) 500 Mg Tablet.dr 1 Tab PO BID Allergies Allergies: Coded Allergies: No Known Drug Allergies (Unverified , 02/10/17) ROS General: No: Chills, Night Sweats, Fatigue, Malaise, Appetite, Other PSYCHOLOGICAL ROS: No: Anxiety Eyes: No Blurry vision, No Decreased vision, No Eye Pain HEENT: No: Heacaches, Nasal discharge, Sore Throat ALLERGY AND IMMUNOLOGY: No: Nasal Congestion Hematological and Lymphatic: No: Bleeding Problems Cardiovascular: No Chest Pain, No Palpitations, No Edema Gastrointestinal: No Nausea, No Vomiting, No Abdominal Pain Genitourinary: YES Frequency, YES Retention Musculoskeletal: Yes Gait Disturbance, Yes Joint Swelling Neurological: No Speech Problems, No Tremors, No Weakness Skin: No Dry Skin Physical Exam General: Alert, Oriented X3, Cooperative, No acute distress HEENT: Atraumatic Lungs: Clear to auscultation Heart: RRR Abdomen: Normal bowel sounds, Soft, No tenderness Extremities: No clubbing, No edema Skin: No rashes Neuro: Normal speech Psych/Mental Status: Mental status NL Vitals Vitals Vital Signs Date Time Temp Pulse Resp B/P (MAP) Pulse Ox O2 Delivery O2 Flow Rate FiO2 02/10/17 14:25 102 177/111 02/10/17 12:33 18 97 Room Air 02/10/17 10:15 98.6 98.6 Labs Labs Laboratory Tests Test 02/10/17 10:16 02/10/17 10:50 White Blood Count 6.4 x10^3/uL (4.0-11.0) Red Blood Count 4.43 x10^6/uL (4.30-5.70) Hemoglobin 14.1 g/dL (13.0-17.5) Hematocrit 40.1 % (39.0-53.0) Mean Corpuscular Volume 91 fL (79-100) Mean Corpuscular Hemoglobin 32 pg (25-35) Mean Corpuscular Hemoglobin Concent 35 g/dL (31-37) Red Cell Distribution Width 12.8 % (11.5-14.5) Platelet Count 180 x10^3/uL (140-400) Neutrophils (%) (Auto) 69 % (31-73) Lymphocytes (%) (Auto) 21 % (24-48) Monocytes (%) (Auto) 6 % (0-9) Eosinophils (%) (Auto) 3 % (0-3) Basophils (%) (Auto) 1 % (0-3) Neutrophils # (Auto) 4.5 x10^3uL (1.8-7.7) Lymphocytes # (Auto) 1.4 x10^3/uL (1.0-4.8) Monocytes # (Auto) 0.4 x10^3/uL (0.0-1.1) Eosinophils # (Auto) 0.2 x10^3/uL (0.0-0.7) Basophils # (Auto) 0.1 x10^3/uL (0.0-0.2) D-Dimer (Jessie) 1.06 ug/mlFEU (0.00-0.50) Sodium Level 142 mmol/L (136-145) Potassium Level 3.8 mmol/L (3.5-5.1) Chloride Level 110 mmol/L (98-107) Carbon Dioxide Level 26 mmol/L (21-32) Anion Gap 6 (6-14) Blood Urea Nitrogen 18 mg/dL (8-26) Creatinine 1.3 mg/dL (0.7-1.3) Estimated GFR (Cockcroft-Gault) 62.8 Glucose Level 116 mg/dL (70-99) Lactic Acid Level 2.7 mmol/L (0.4-2.0) Calcium Level 9.0 mg/dL (8.5-10.1) Magnesium Level 1.6 mg/dL (1.8-2.4) Total Bilirubin 0.3 mg/dL (0.2-1.0) Direct Bilirubin 0.1 mg/dL (0.0-0.2) Aspartate Amino Transf (AST/SGOT) 36 U/L (15-37) Alanine Aminotransferase (ALT/SGPT) 34 U/L (16-63) Alkaline Phosphatase 104 U/L (46-116) Creatine Kinase 92 U/L (39-308) Creatine Kinase MB (Mass) 1.5 ng/mL (0.0-3.6) Creatine Kinase MB Relative Index 1.6 % (0-4) Troponin I Quantitative < 0.017 ng/mL (0.000-0.055) Total Protein 5.7 g/dL (6.4-8.2) Albumin 2.8 g/dL (3.4-5.0) Triglycerides Level 33 mg/dL (0-150) Cholesterol Level 190 mg/dL (0-200) LDL Cholesterol, Calculated 122 mg/dL (0-100) VLDL Cholesterol, Calculated 7 mg/dL (0-40) Non-HDL Cholesterol Calculated 129 mg/dL (0-129) HDL Cholesterol 61 mg/dL (40-60) Cholesterol/HDL Ratio 3.1 Thyroid Stimulating Hormone (TSH) 1.261 uIU/mL (0.358-3.74) Urine Opiates Screen Neg (NEG) Urine Methadone Screen Neg (NEG) Urine Barbiturates Neg (NEG) Urine Phencyclidine Screen Neg (NEG) Urine Amphetamine/Methamphetamine Neg (NEG) Urine Benzodiazepines Screen Neg (NEG) Urine Cocaine Screen Neg (NEG) Urine Cannabinoids Screen Neg (NEG) Urine Ethyl Alcohol Neg (NEG) Laboratory Tests Test 02/10/17 10:16 02/10/17 10:50 White Blood Count 6.4 x10^3/uL (4.0-11.0) Red Blood Count 4.43 x10^6/uL (4.30-5.70) Hemoglobin 14.1 g/dL (13.0-17.5) Hematocrit 40.1 % (39.0-53.0) Mean Corpuscular Volume 91 fL (79-100) Mean Corpuscular Hemoglobin 32 pg (25-35) Mean Corpuscular Hemoglobin Concent 35 g/dL (31-37) Red Cell Distribution Width 12.8 % (11.5-14.5) Platelet Count 180 x10^3/uL (140-400) Neutrophils (%) (Auto) 69 % (31-73) Lymphocytes (%) (Auto) 21 % (24-48) Monocytes (%) (Auto) 6 % (0-9) Eosinophils (%) (Auto) 3 % (0-3) Basophils (%) (Auto) 1 % (0-3) Neutrophils # (Auto) 4.5 x10^3uL (1.8-7.7) Lymphocytes # (Auto) 1.4 x10^3/uL (1.0-4.8) Monocytes # (Auto) 0.4 x10^3/uL (0.0-1.1) Eosinophils # (Auto) 0.2 x10^3/uL (0.0-0.7) Basophils # (Auto) 0.1 x10^3/uL (0.0-0.2) D-Dimer (Jessie) 1.06 ug/mlFEU (0.00-0.50) Sodium Level 142 mmol/L (136-145) Potassium Level 3.8 mmol/L (3.5-5.1) Chloride Level 110 mmol/L (98-107) Carbon Dioxide Level 26 mmol/L (21-32) Anion Gap 6 (6-14) Blood Urea Nitrogen 18 mg/dL (8-26) Creatinine 1.3 mg/dL (0.7-1.3) Estimated GFR (Cockcroft-Gault) 62.8 Glucose Level 116 mg/dL (70-99) Lactic Acid Level 2.7 mmol/L (0.4-2.0) Calcium Level 9.0 mg/dL (8.5-10.1) Magnesium Level 1.6 mg/dL (1.8-2.4) Total Bilirubin 0.3 mg/dL (0.2-1.0) Direct Bilirubin 0.1 mg/dL (0.0-0.2) Aspartate Amino Transf (AST/SGOT) 36 U/L (15-37) Alanine Aminotransferase (ALT/SGPT) 34 U/L (16-63) Alkaline Phosphatase 104 U/L (46-116) Creatine Kinase 92 U/L (39-308) Creatine Kinase MB (Mass) 1.5 ng/mL (0.0-3.6) Creatine Kinase MB Relative Index 1.6 % (0-4) Troponin I Quantitative < 0.017 ng/mL (0.000-0.055) Total Protein 5.7 g/dL (6.4-8.2) Albumin 2.8 g/dL (3.4-5.0) Triglycerides Level 33 mg/dL (0-150) Cholesterol Level 190 mg/dL (0-200) LDL Cholesterol, Calculated 122 mg/dL (0-100) VLDL Cholesterol, Calculated 7 mg/dL (0-40) Non-HDL Cholesterol Calculated 129 mg/dL (0-129) HDL Cholesterol 61 mg/dL (40-60) Cholesterol/HDL Ratio 3.1 Thyroid Stimulating Hormone (TSH) 1.261 uIU/mL (0.358-3.74) Urine Opiates Screen Neg (NEG) Urine Methadone Screen Neg (NEG) Urine Barbiturates Neg (NEG) Urine Phencyclidine Screen Neg (NEG) Urine Amphetamine/Methamphetamine Neg (NEG) Urine Benzodiazepines Screen Neg (NEG) Urine Cocaine Screen Neg (NEG) Urine Cannabinoids Screen Neg (NEG) Urine Ethyl Alcohol Neg (NEG) VTE Prophylaxis Ordered VTE Prophylaxis Devices: Yes VTE Pharmacological Prophylaxi: Yes Assessment/Plan Assessment/Plan Mr Caldera is a 36 y/o man with epilepsy, admitted with blood per mouth, unclear origin. no rpt bleeding zach - ? 2/2 trauma during sz. monitor. for his seizures, he has been given keppra in the ER. will check depakote level. Hypertensive urgency is new. he is on amlodipine and triamterene at home. will continue here, lisinopril 20 was added. monitor closely; PRN hydralazine , labeltalol. Urinary retention is new as well. He states he is experiencing dysuria and frequency, wit the feeling of not emptying his bladder completely. UA actually showed no evidence of infection or microscopic bleed. he is able to void now; hold off on Baldwin; add flomax Prophylaxis: lovenox, DALLIN WRAY MD Feb 10, 2017 15:20
--- NOTE | 2017-02-10 15:40 | CARD ---
APPROVED REPORT EXAM: Two-dimensional and M-mode echocardiogram with Doppler and color Doppler. Other Information Quality : GoodHR: 95bpm INDICATION Hypertension/HCVD 2D DIMENSIONS RVDd2.1 (2.9-3.5cm)Left Atrium(2D)2.1 (1.6-4.0cm) IVSd1.0 (0.7-1.1cm)Aortic Root(2D)2.7 (2.0-3.7cm) LVDd3.8 (3.9-5.9cm)LVOT Diameter2.1 (1.8-2.4cm) PWd0.9 (0.7-1.1cm)LVDs2.3 (2.5-4.0cm) FS (%) 38.6 %SV42.2 ml Aortic Valve AoV Peak Tai.156.4cm/sAoV VTI28.4cm AO Peak GR.9.8mmHgLVOT Peak Tai.102.4cm/s AO Mean GR.6mmHgAVA (VMAX)2.23cm2 Mitral Valve MV E Aqsklysl09.7cm/sMV E Peak Gr.8mmHg MV DECEL [id number] A Hyzdpjrs756.4cm/s MV E Mean Gr.4mmHgE/A Ratio0.8 MV A [id number] Pulmonary Valve PV Peak Hkrbiynr984.4cm/s Pulmonary Vein S1 Mcspzail31.3cm/sD2 Prnksyau15.1cm/s PVa [id number] LEFT VENTRICLE The left ventricle is normal size. There is normal left ventricular wall thickness. The left ventricu lar systolic function is normal and the ejection fraction is within normal range. The Ejection Fracti on is 60-65%. There is normal LV segmental wall motion. Transmitral Doppler flow pattern is Grade I-a bnormal relaxation pattern. RIGHT VENTRICLE The right ventricle is normal size. There is normal right ventricular wall thickness. The right ventr icular systolic function is normal. ATRIA The left atrium size is normal. The right atrium size is normal. The interatrial septum is intact wit h no evidence for an atrial septal defect or patent foramen ovale as noted on 2-D or Doppler imaging. AORTIC VALVE The aortic valve is normal in structure and function. The aortic valve is trileaflet. Doppler and Col or Flow revealed no significant aortic regurgitation. There is no significant aortic valvular stenosi s. MITRAL VALVE The mitral valve is normal in structure and function. There is no evidence of mitral valve prolapse. There is no mitral valve stenosis. Doppler and Color Flow revealed no mitral valve regurgitation note d. TRICUSPID VALVE Doppler and Color Flow revealed no tricuspid valve regurgitation noted. PULMONIC VALVE Doppler and Color Flow revealed no pulmonic valvular regurgitation. There is no pulmonic valvular inez nosis. GREAT VESSELS The aortic root is normal in size. The ascending aorta is normal in size. The pulmonary artery is nor mal. The IVC is normal in size and collapses >50% with inspiration. PERICARDIAL EFFUSION There is no evidence of significant pericardial effusion. Critical Notification Critical Value: No <Conclusion> The left ventricle is normal size. The left ventricular systolic function is normal and the ejection fraction is within normal range. The Ejection Fraction is 60-65%. There is no significant aortic valvular stenosis. Doppler and Color Flow revealed no significant aortic regurgitation. Doppler and Color Flow revealed no mitral valve regurgitation noted. Doppler and Color Flow revealed no tricuspid valve regurgitation noted. There is no evidence of significant pericardial effusion.
[2017-02-10 15:41] LABS: BILIRUBIN,URINE NEGATIVE (NEG); GLUCOSE,URINE NEGATIVE (NEG); NITRITE,URINE NEGATIVE (NEG); PH,URINE 7.5; PROTEIN,URINE 100 mg/dL (NEG-TRACE); UROBILINOGEN,URINE 0.2 mg/dL (0.2 mg/dL)
[2017-02-10 15:47] LABS: BACTERIA,URINE 0 /HPF (0-FEW); RBC,URINE OCC /HPF (0-2); WBC,URINE 0 /HPF (0-4)
[2017-02-10] MEDS ORDERED: ACETAMINOPHEN 325 MG TABLET. PO PRN (17:00)
[2017-02-10] MEDS: CARVEDILOL 6.25 MG TABLET. PO SCH (17:08)
[2017-02-10 17:49] VITALS: BP 138/68
[2017-02-10 19:50] VITALS: BP 154/107
[2017-02-10] MEDS: TAMSULOSIN 0.4 MG CAP.ER.24H. PO SCH (20:56)
[2017-02-10 22:10] VITALS: BP 165/93
[2017-02-11] VITALS (7 sets, daily range): BP systolic 126–180; BP diastolic 82–112
[2017-02-11 05:19] LABS: BASO # 0.1 x10^3/uL (0.0-0.2); BASO % 2 % (0-3); EOS % 2 % (0-3); LYMPH # 1.7 x10^3/uL (1.0-4.8); LYMPH % 22 % (24-48); MEAN CORPUSCULAR HEMOGLOBIN 32 pg (25-35); MEAN CORPUSCULAR HGB CONC 35 g/dL (31-37); MEAN CORPUSCULAR VOLUME 90 fL (79-100); MONO % 8 % (0-9); NEUT % 66 % (31-73); PLATELET COUNT 177 x10^3/uL (140-400); RED CELL DISTRIBUTION WIDTH 13.2 % (11.5-14.5); WHITE BLOOD COUNT 7.9 x10^3/uL (4.0-11.0)
[2017-02-11 05:34] LABS: CALCIUM 8.6 mg/dL (8.5-10.1); CREATININE 1.1 mg/dL (0.7-1.3); GFR 76.2; POTASSIUM 3.6 mmol/L (3.5-5.1)
--- NOTE | 2017-02-11 06:48 | ACF ---
Admission Forms Criteria HYPERTENSION Clinical Indications for Admission to Inpatient Care ( Place "X" for any and all applicable criteria): Admission is indicated for 1 or more of the following(1)(2)(3)(4)(5)(6)(7)(8)(9) (10): [ ]I. Hypertensive emergency, with evidence of acute and progressing target organ disease as indicated by 1 or more of the following: [ ]a) Hypertensive encephalopathy (eg, confusion, altered mental status) [ ]b) Cerebral infarction [ ]c) Intracranial hemorrhage [ ]d) Myocardial ischemia or infarction [ ]e) Heart failure (eg. Pulmonary edema) [ ]f) Aortic dissection [ ]g) Increased creatinine (new) with reduction of more than 50% in estimated glomerular filtration rate from baseline [ ]h) Seizure [ ]i) Papilledema [ ]j) Retinal hemorrhage [ ]k) Microangiopathic hemolytic anemia [ ]l) Other significant finding secondary to hypertension [ ]II. Adrenergic or sympathomimetic crisis (eg, severe hypertension due to pheochromocytoma crisis, cocaine or amphetamine intoxication, or clonidine withdrawal) [X]III. Severe hypertension (SBP greater than 180 mmHg or DBP greater than 110 mmHg or greater than the 95th percentile for age, gender, and height in pediatric patients) that cannot be controlled (eg, to SBP less than 160 mmHg and DBP less than 100 mmHg in adults) by treatment with oral medication in emergency department or observation care Extended stay beyond goal length of stay may be needed for(11)(12)(13): [ ]a) Persistent hypertensive encephalopathy [ ]b) Continuation of pulmonary edema [ ]c) Recurring or persistent severe hypertension [ ]d) Target organ damage (eg, angina, stroke, aortic dissection) The original [employer] content created by [employer] has been revised. The portions of the content which have been revised are identified through the use of italic text, and [employer] has neither reviewed nor approved the modified material. All other unmodified content is copyright [employer]. Please see references footnoted in the original [employer] edition 2014 Admission Criteria Met?: Yes KESHIA SOLER Feb 11, 2017 06:48
[2017-02-11] MEDS: LISINOPRIL 20 MG TABLET PO SCH (07:51)
[2017-02-11] MEDS: CARVEDILOL 6.25 MG TABLET. PO SCH (07:51)
[2017-02-11] MEDS: levETIRAcetam 500 MG TABLET PO SCH ×2 (07:54→21:08)
[2017-02-11] MEDS: LABETALOL 20 MG/4 ML DISP.SYRIN. IVP PRN (09:28)
[2017-02-11] MEDS ORDERED: LISINOPRIL 20 MG TABLET PO ONE (09:30)
[2017-02-11] MEDS ORDERED: CARVEDILOL 6.25 MG TABLET. PO ONE (10:00)
--- NOTE | 2017-02-11 10:00 | PDOC ---
CARDIO Progress Notes Date and Time Date of Service 02/11/2017 Time of Evaluation 0920 Subjective Subjective: No shortness of breath, No Palpitations, No Dizziness, Other ( still has CP with deep breathing but much better) Vitals Vitals Vital Signs Date Time Temp Pulse Resp B/P (MAP) Pulse Ox O2 Delivery O2 Flow Rate FiO2 02/11/17 09:28 91 187/111 02/11/17 07:56 Room Air 02/11/17 07:00 97.7 18 98 97.7 Weight Weight [ ] Input and Output Intake and Output Intake and Output 02/11/17 07:00 Intake Total 2000 ml Output Total 2100 ml Balance -100 ml Intake IV Total 2000 ml Output Urine Total 2100 ml Laboratory Labs Laboratory Tests Test 02/10/17 10:16 02/10/17 10:50 02/10/17 15:00 02/10/17 18:48 White Blood Count 6.4 x10^3/uL (4.0-11.0) Red Blood Count 4.43 x10^6/uL (4.30-5.70) Hemoglobin 14.1 g/dL (13.0-17.5) Hematocrit 40.1 % (39.0-53.0) Mean Corpuscular Volume 91 fL (79-100) Mean Corpuscular Hemoglobin 32 pg (25-35) Mean Corpuscular Hemoglobin Concent 35 g/dL (31-37) Red Cell Distribution Width 12.8 % (11.5-14.5) Platelet Count 180 x10^3/uL (140-400) Neutrophils (%) (Auto) 69 % (31-73) Lymphocytes (%) (Auto) 21 % (24-48) Monocytes (%) (Auto) 6 % (0-9) Eosinophils (%) (Auto) 3 % (0-3) Basophils (%) (Auto) 1 % (0-3) Neutrophils # (Auto) 4.5 x10^3uL (1.8-7.7) Lymphocytes # (Auto) 1.4 x10^3/uL (1.0-4.8) Monocytes # (Auto) 0.4 x10^3/uL (0.0-1.1) Eosinophils # (Auto) 0.2 x10^3/uL (0.0-0.7) Basophils # (Auto) 0.1 x10^3/uL (0.0-0.2) D-Dimer (Jessie) 1.06 ug/mlFEU (0.00-0.50) Sodium Level 142 mmol/L (136-145) Potassium Level 3.8 mmol/L (3.5-5.1) Chloride Level 110 mmol/L (98-107) Carbon Dioxide Level 26 mmol/L (21-32) Anion Gap 6 (6-14) Blood Urea Nitrogen 18 mg/dL (8-26) Creatinine 1.3 mg/dL (0.7-1.3) Estimated GFR (Cockcroft-Gault) 62.8 Glucose Level 116 mg/dL (70-99) Lactic Acid Level 2.7 mmol/L (0.4-2.0) Calcium Level 9.0 mg/dL (8.5-10.1) Magnesium Level 1.6 mg/dL (1.8-2.4) Total Bilirubin 0.3 mg/dL (0.2-1.0) Direct Bilirubin 0.1 mg/dL (0.0-0.2) Aspartate Amino Transf (AST/SGOT) 36 U/L (15-37) Alanine Aminotransferase (ALT/SGPT) 34 U/L (16-63) Alkaline Phosphatase 104 U/L (46-116) Creatine Kinase 92 U/L (39-308) Creatine Kinase MB (Mass) 1.5 ng/mL (0.0-3.6) Creatine Kinase MB Relative Index 1.6 % (0-4) Troponin I Quantitative < 0.017 ng/mL (0.000-0.055) 0.098 ng/mL (0.000-0.055) Total Protein 5.7 g/dL (6.4-8.2) Albumin 2.8 g/dL (3.4-5.0) Triglycerides Level 33 mg/dL (0-150) Cholesterol Level 190 mg/dL (0-200) LDL Cholesterol, Calculated 122 mg/dL (0-100) VLDL Cholesterol, Calculated 7 mg/dL (0-40) Non-HDL Cholesterol Calculated 129 mg/dL (0-129) HDL Cholesterol 61 mg/dL (40-60) Cholesterol/HDL Ratio 3.1 Thyroid Stimulating Hormone (TSH) 1.261 uIU/mL (0.358-3.74) Valproic Acid (Depakene) Level < 3 mcg/mL (50-100) Valproic Acid Last Dose Date Valproic Acid Last Dose Time Urine Opiates Screen Neg (NEG) Urine Methadone Screen Neg (NEG) Urine Barbiturates Neg (NEG) Urine Phencyclidine Screen Neg (NEG) Urine Amphetamine/Methamphetamine Neg (NEG) Urine Benzodiazepines Screen Neg (NEG) Urine Cocaine Screen Neg (NEG) Urine Cannabinoids Screen Neg (NEG) Urine Ethyl Alcohol Neg (NEG) Urine Collection Type Unknown Urine Color Yellow Urine Clarity Clear Urine pH 7.5 Urine Specific [place] 1.015 Urine Protein 100 mg/dL (NEG-TRACE) Urine Glucose (UA) Negative mg/dL (NEG) Urine Ketones (Stick) Negative mg/dL (NEG) Urine Blood Negative (NEG) Urine Nitrite Negative (NEG) Urine Bilirubin Negative (NEG) Urine Urobilinogen Dipstick 0.2 mg/dL (0.2 mg/dL) Urine Leukocyte Esterase Negative (NEG) Urine RBC Occ /HPF (0-2) Urine WBC 0 /HPF (0-4) Urine Bacteria 0 /HPF (0-FEW) Test 02/11/17 04:30 White Blood Count 7.9 x10^3/uL (4.0-11.0) Red Blood Count 4.10 x10^6/uL (4.30-5.70) Hemoglobin 13.0 g/dL (13.0-17.5) Hematocrit 37.0 % (39.0-53.0) Mean Corpuscular Volume 90 fL (79-100) Mean Corpuscular Hemoglobin 32 pg (25-35) Mean Corpuscular Hemoglobin Concent 35 g/dL (31-37) Red Cell Distribution Width 13.2 % (11.5-14.5) Platelet Count 177 x10^3/uL (140-400) Neutrophils (%) (Auto) 66 % (31-73) Lymphocytes (%) (Auto) 22 % (24-48) Monocytes (%) (Auto) 8 % (0-9) Eosinophils (%) (Auto) 2 % (0-3) Basophils (%) (Auto) 2 % (0-3) Neutrophils # (Auto) 5.2 x10^3uL (1.8-7.7) Lymphocytes # (Auto) 1.7 x10^3/uL (1.0-4.8) Monocytes # (Auto) 0.6 x10^3/uL (0.0-1.1) Eosinophils # (Auto) 0.2 x10^3/uL (0.0-0.7) Basophils # (Auto) 0.1 x10^3/uL (0.0-0.2) Sodium Level 146 mmol/L (136-145) Potassium Level 3.6 mmol/L (3.5-5.1) Chloride Level 112 mmol/L (98-107) Carbon Dioxide Level 26 mmol/L (21-32) Anion Gap 8 (6-14) Blood Urea Nitrogen 20 mg/dL (8-26) Creatinine 1.1 mg/dL (0.7-1.3) Estimated GFR (Cockcroft-Gault) 76.2 Glucose Level 96 mg/dL (70-99) Calcium Level 8.6 mg/dL (8.5-10.1) Magnesium Level 2.3 mg/dL (1.8-2.4) Troponin I Quantitative 0.115 ng/mL (0.000-0.055) Physical Exam HEENT: Neck Supple W Full Motion Chest: Symmetric LUNGS: Clear to Auscultation Heart: S1S2, RRR (SR), murmurs (2/6 systolic murmur LLS border) Abdomen: Soft N/T Extremities: No Calf Tenderness Neurology: alert, oriented, follow commands Assessment Assessment 1. Accelerated HTN 2. Sinus tachycardia: reactive. Now improved 3. Atypical CP: MSK likely r/t to fall as well possible esophagitis and aspiration from his seizure 4. Seizure/post ictal state: hx of grandmal. Per neurology 5. Hemoptysis: none further 6. Nontraumatic Fall: r/t seizure 7. Elevated troponin: 0.115 likely induced by HTN and seizure. TTE with normal EF and wall motion Recommendations 1. Notable for med noncompliance. 2. Increase coreg and lisinopril and add HCTZ 3. Repeat EKG, check CK 4. Discussed adherence to meds. 5. Will consider for outpt stress test unless changes in EKG. . NEMESIO TREJO APRN Feb 11, 2017 10:00
[2017-02-11] MEDS: hydroCHLOROthiazide 12.5 MG CAPSULE PO SCH (10:08)
--- NOTE | 2017-02-11 10:23 | PDOC ---
PROGRESS NOTES Assessment Problems Medical Problems: (1) Hypertensive urgency Status: Acute Long-standing epilepsy, breakthrough seizure today. Plan Levetiracetam 500 mg twice a day I do not see a need to repeat EEG or MRI studies. Follow-up with me or neurology in 6 weeks. Subjective Feels a little dizzy Objective Vital Signs Date Time Temp Pulse Resp B/P (MAP) Pulse Ox O2 Delivery O2 Flow Rate FiO2 02/11/17 10:09 86 172/100 02/11/17 07:56 Room Air 02/11/17 07:00 97.7 18 98 97.7 Intake and Output 02/11/17 07:00 Intake Total 2000 ml Output Total 2100 ml Balance -100 ml Intake IV Total 2000 ml Output Urine Total 2100 ml PHYSICAL EXAM Alert. Oriented to time, place and person. PERRL. EOMI. CN: no focal findings. Muscle tone: normal. Muscle strength: 5/5 DTR: 2+ Plantar reflex: Flexor Gait: not examined in bed. Sensory exam: no abnormal findings. No cerebellar signs elicited. Review of Relevant I have reviewed the following items ray (where applicable) has been applied. Labs Laboratory Tests Test 02/10/17 10:16 02/10/17 10:50 02/10/17 15:00 02/10/17 18:48 White Blood Count 6.4 x10^3/uL (4.0-11.0) Red Blood Count 4.43 x10^6/uL (4.30-5.70) Hemoglobin 14.1 g/dL (13.0-17.5) Hematocrit 40.1 % (39.0-53.0) Mean Corpuscular Volume 91 fL (79-100) Mean Corpuscular Hemoglobin 32 pg (25-35) Mean Corpuscular Hemoglobin Concent 35 g/dL (31-37) Red Cell Distribution Width 12.8 % (11.5-14.5) Platelet Count 180 x10^3/uL (140-400) Neutrophils (%) (Auto) 69 % (31-73) Lymphocytes (%) (Auto) 21 % (24-48) Monocytes (%) (Auto) 6 % (0-9) Eosinophils (%) (Auto) 3 % (0-3) Basophils (%) (Auto) 1 % (0-3) Neutrophils # (Auto) 4.5 x10^3uL (1.8-7.7) Lymphocytes # (Auto) 1.4 x10^3/uL (1.0-4.8) Monocytes # (Auto) 0.4 x10^3/uL (0.0-1.1) Eosinophils # (Auto) 0.2 x10^3/uL (0.0-0.7) Basophils # (Auto) 0.1 x10^3/uL (0.0-0.2) D-Dimer (Jessie) 1.06 ug/mlFEU (0.00-0.50) Sodium Level 142 mmol/L (136-145) Potassium Level 3.8 mmol/L (3.5-5.1) Chloride Level 110 mmol/L (98-107) Carbon Dioxide Level 26 mmol/L (21-32) Anion Gap 6 (6-14) Blood Urea Nitrogen 18 mg/dL (8-26) Creatinine 1.3 mg/dL (0.7-1.3) Estimated GFR (Cockcroft-Gault) 62.8 Glucose Level 116 mg/dL (70-99) Lactic Acid Level 2.7 mmol/L (0.4-2.0) Calcium Level 9.0 mg/dL (8.5-10.1) Magnesium Level 1.6 mg/dL (1.8-2.4) Total Bilirubin 0.3 mg/dL (0.2-1.0) Direct Bilirubin 0.1 mg/dL (0.0-0.2) Aspartate Amino Transf (AST/SGOT) 36 U/L (15-37) Alanine Aminotransferase (ALT/SGPT) 34 U/L (16-63) Alkaline Phosphatase 104 U/L (46-116) Creatine Kinase 92 U/L (39-308) Creatine Kinase MB (Mass) 1.5 ng/mL (0.0-3.6) Creatine Kinase MB Relative Index 1.6 % (0-4) Troponin I Quantitative < 0.017 ng/mL (0.000-0.055) 0.098 ng/mL (0.000-0.055) Total Protein 5.7 g/dL (6.4-8.2) Albumin 2.8 g/dL (3.4-5.0) Triglycerides Level 33 mg/dL (0-150) Cholesterol Level 190 mg/dL (0-200) LDL Cholesterol, Calculated 122 mg/dL (0-100) VLDL Cholesterol, Calculated 7 mg/dL (0-40) Non-HDL Cholesterol Calculated 129 mg/dL (0-129) HDL Cholesterol 61 mg/dL (40-60) Cholesterol/HDL Ratio 3.1 Thyroid Stimulating Hormone (TSH) 1.261 uIU/mL (0.358-3.74) Valproic Acid (Depakene) Level < 3 mcg/mL (50-100) Valproic Acid Last Dose Date Valproic Acid Last Dose Time Urine Opiates Screen Neg (NEG) Urine Methadone Screen Neg (NEG) Urine Barbiturates Neg (NEG) Urine Phencyclidine Screen Neg (NEG) Urine Amphetamine/Methamphetamine Neg (NEG) Urine Benzodiazepines Screen Neg (NEG) Urine Cocaine Screen Neg (NEG) Urine Cannabinoids Screen Neg (NEG) Urine Ethyl Alcohol Neg (NEG) Urine Collection Type Unknown Urine Color Yellow Urine Clarity Clear Urine pH 7.5 Urine Specific [place] 1.015 Urine Protein 100 mg/dL (NEG-TRACE) Urine Glucose (UA) Negative mg/dL (NEG) Urine Ketones (Stick) Negative mg/dL (NEG) Urine Blood Negative (NEG) Urine Nitrite Negative (NEG) Urine Bilirubin Negative (NEG) Urine Urobilinogen Dipstick 0.2 mg/dL (0.2 mg/dL) Urine Leukocyte Esterase Negative (NEG) Urine RBC Occ /HPF (0-2) Urine WBC 0 /HPF (0-4) Urine Bacteria 0 /HPF (0-FEW) Test 02/11/17 04:30 White Blood Count 7.9 x10^3/uL (4.0-11.0) Red Blood Count 4.10 x10^6/uL (4.30-5.70) Hemoglobin 13.0 g/dL (13.0-17.5) Hematocrit 37.0 % (39.0-53.0) Mean Corpuscular Volume 90 fL (79-100) Mean Corpuscular Hemoglobin 32 pg (25-35) Mean Corpuscular Hemoglobin Concent 35 g/dL (31-37) Red Cell Distribution Width 13.2 % (11.5-14.5) Platelet Count 177 x10^3/uL (140-400) Neutrophils (%) (Auto) 66 % (31-73) Lymphocytes (%) (Auto) 22 % (24-48) Monocytes (%) (Auto) 8 % (0-9) Eosinophils (%) (Auto) 2 % (0-3) Basophils (%) (Auto) 2 % (0-3) Neutrophils # (Auto) 5.2 x10^3uL (1.8-7.7) Lymphocytes # (Auto) 1.7 x10^3/uL (1.0-4.8) Monocytes # (Auto) 0.6 x10^3/uL (0.0-1.1) Eosinophils # (Auto) 0.2 x10^3/uL (0.0-0.7) Basophils # (Auto) 0.1 x10^3/uL (0.0-0.2) Sodium Level 146 mmol/L (136-145) Potassium Level 3.6 mmol/L (3.5-5.1) Chloride Level 112 mmol/L (98-107) Carbon Dioxide Level 26 mmol/L (21-32) Anion Gap 8 (6-14) Blood Urea Nitrogen 20 mg/dL (8-26) Creatinine 1.1 mg/dL (0.7-1.3) Estimated GFR (Cockcroft-Gault) 76.2 Glucose Level 96 mg/dL (70-99) Calcium Level 8.6 mg/dL (8.5-10.1) Magnesium Level 2.3 mg/dL (1.8-2.4) Troponin I Quantitative 0.115 ng/mL (0.000-0.055) Laboratory Tests Test 02/10/17 10:50 02/10/17 15:00 02/10/17 18:48 02/11/17 04:30 Urine Opiates Screen Neg (NEG) Urine Methadone Screen Neg (NEG) Urine Barbiturates Neg (NEG) Urine Phencyclidine Screen Neg (NEG) Urine Amphetamine/Methamphetamine Neg (NEG) Urine Benzodiazepines Screen Neg (NEG) Urine Cocaine Screen Neg (NEG) Urine Cannabinoids Screen Neg (NEG) Urine Ethyl Alcohol Neg (NEG) Urine Collection Type Unknown Urine Color Yellow Urine Clarity Clear Urine pH 7.5 Urine Specific [place] 1.015 Urine Protein 100 mg/dL (NEG-TRACE) Urine Glucose (UA) Negative mg/dL (NEG) Urine Ketones (Stick) Negative mg/dL (NEG) Urine Blood Negative (NEG) Urine Nitrite Negative (NEG) Urine Bilirubin Negative (NEG) Urine Urobilinogen Dipstick 0.2 mg/dL (0.2 mg/dL) Urine Leukocyte Esterase Negative (NEG) Urine RBC Occ /HPF (0-2) Urine WBC 0 /HPF (0-4) Urine Bacteria 0 /HPF (0-FEW) Troponin I Quantitative 0.098 ng/mL (0.000-0.055) 0.115 ng/mL (0.000-0.055) White Blood Count 7.9 x10^3/uL (4.0-11.0) Red Blood Count 4.10 x10^6/uL (4.30-5.70) Hemoglobin 13.0 g/dL (13.0-17.5) Hematocrit 37.0 % (39.0-53.0) Mean Corpuscular Volume 90 fL (79-100) Mean Corpuscular Hemoglobin 32 pg (25-35) Mean Corpuscular Hemoglobin Concent 35 g/dL (31-37) Red Cell Distribution Width 13.2 % (11.5-14.5) Platelet Count 177 x10^3/uL (140-400) Neutrophils (%) (Auto) 66 % (31-73) Lymphocytes (%) (Auto) 22 % (24-48) Monocytes (%) (Auto) 8 % (0-9) Eosinophils (%) (Auto) 2 % (0-3) Basophils (%) (Auto) 2 % (0-3) Neutrophils # (Auto) 5.2 x10^3uL (1.8-7.7) Lymphocytes # (Auto) 1.7 x10^3/uL (1.0-4.8) Monocytes # (Auto) 0.6 x10^3/uL (0.0-1.1) Eosinophils # (Auto) 0.2 x10^3/uL (0.0-0.7) Basophils # (Auto) 0.1 x10^3/uL (0.0-0.2) Sodium Level 146 mmol/L (136-145) Potassium Level 3.6 mmol/L (3.5-5.1) Chloride Level 112 mmol/L (98-107) Carbon Dioxide Level 26 mmol/L (21-32) Anion Gap 8 (6-14) Blood Urea Nitrogen 20 mg/dL (8-26) Creatinine 1.1 mg/dL (0.7-1.3) Estimated GFR (Cockcroft-Gault) 76.2 Glucose Level 96 mg/dL (70-99) Calcium Level 8.6 mg/dL (8.5-10.1) Magnesium Level 2.3 mg/dL (1.8-2.4) Medications Current Medications Sodium Chloride 1,000 ml @ 1,000 mls/hr 1X ONCE IV Last administered on 10:41; Start 02/10/17 at 10:30; Stop 02/10/17 at 11:29; Status DC Hydralazine HCl (Apresoline) 10 mg 1X ONCE IVP Last administered on 02/10/17 11:21; Start 02/10/17 at 11:30; Stop 02/10/17 at 11:31; Status DC Sodium Chloride 1,000 ml @ 1,000 mls/hr 1X ONCE IV Last administered on 11:52; Start 02/10/17 at 12:00; Stop 02/10/17 at 12:59; Status DC Hydralazine HCl (Apresoline) 20 mg 1X ONCE IVP Last administered on 02/10/17 11:53; Start 02/10/17 at 12:00; Stop 02/10/17 at 12:01; Status DC Labetalol HCl (Normodyne) 20 mg PRN Q2HR PRN IVP HYPERTENSION, SEE COMMENTS Last administered on 02/11/17 09:28; Start 02/10/17 at 12:15 Ondansetron HCl (Zofran) 4 mg PRN Q8HRS PRN IV NAUSEA/VOMITING; Start 02/10/17 at 13:00; Stop 02/11/17 at 12:59 Iohexol (Omnipaque 300 Mg/ml) 75 ml 1X ONCE IV Last administered on 02/10/17 13:24; Start 02/10/17 at 13:30; Stop 02/10/17 at 13:31; Status DC Info (Do NOT chart on this entry -- for MONITORING) 1 each PRN DAILY PRN MC SEE COMMENTS; Start 02/10/17 at 13:15; Stop 02/12/17 at 13:14 Magnesium Sulfate/ Dextrose 50 ml @ 25 mls/hr 1X ONCE IV Last administered on 02/10/17 13:49; Start 02/10/17 at 14:00; Stop 02/10/17 at 15:59; Status DC Carvedilol (Coreg) 6.25 mg BIDWMEALS PO Last administered on 02/11/17 07:51; Start 02/10/17 at 17:00; Stop 02/11/17 at 09:26; Status DC Lisinopril (Prinivil) 20 mg DAILY PO Last administered on 02/11/17 07:51; Start 02/10/17 at 14:30; Stop 02/11/17 at 09:26; Status DC Levetiracetam (Keppra) 500 mg BID PO Last administered on 02/11/17 07:54; Start 02/10/17 at 14:30 Acetaminophen (Tylenol) 650 mg PRN Q6HRS PRN PO HEADACHE Last administered on 17:06; Start 02/10/17 at 17:00 Tamsulosin HCl (Flomax) 0.4 mg QHS PO Last administered on 02/10/17 20:56; Start 02/10/17 at 21:00 Carvedilol (Coreg) 12.5 mg BIDWMEALS PO ; Start 02/11/17 at 17:00 Lisinopril (Prinivil) 40 mg DAILY PO ; Start 02/12/17 at 09:00 Hydrochlorothiazide (Microzide) 12.5 mg DAILY PO Last administered on 10:08; Start 02/11/17 at 09:30 Carvedilol (Coreg) 6.25 mg 1X ONCE PO Last administered on 02/11/17 10:09; Start 02/11/17 at 10:00; Stop 02/11/17 at 10:01; Status DC Lisinopril (Prinivil) 20 mg 1X ONCE PO ; Start 02/11/17 at 09:30; Stop at 09:31; Status DC Active Scripts Active Reported Amlodipine Besylate 10 Mg Tablet 10 Mg PO DAILY Triamterene-Hctz 75-50 Mg Tab (Triamterene/Hydrochlorothiazid) 1 Each Tablet 1 Tab PO DAILY Fycompa (Perampanel) 2 Mg Tablet 2 Mg PO Depakote (Divalproex Sodium) 500 Mg Tablet. 1 Tab PO BID Vitals/I & O Vital Sign - Last 24 Hours 02/10/17 02/10/17 02/10/17 02/10/17 10:31 10:46 11:16 11:21 Pulse 92 85 85 89 Resp 16 16 18 B/P (MAP) 207/122 (150) 222/121 (154) 238/130 (166) 238/130 Pulse Ox 98 97 97 02/10/17 02/10/17 02/10/17 02/10/17 11:22 11:43 11:53 12:10 Pulse 80 102 105 138 Resp 18 20 20 B/P (MAP) 209/118 (148) 214/113 (146) 214/113 185/97 (126) Pulse Ox 99 98 98 O2 Delivery Room Air 02/10/17 02/10/17 02/10/17 02/10/17 12:33 12:36 13:07 13:37 Pulse 134 134 108 114 Resp 18 20 16 B/P (MAP) 170/97 (121) 170/97 185/111 (135) 195/101 (132) Pulse Ox 97 98 98 O2 Delivery Room Air Room Air 02/10/17 02/10/17 02/10/17 02/10/17 14:25 14:40 17:08 17:49 Pulse 102 96 91 B/P (MAP) 177/111 186/109 138/68 (91) O2 Delivery Room Air 02/10/17 02/10/17 02/10/17 02/11/17 19:50 20:00 22:10 02:43 Temp 98.2 98.4 98.3 98.2 98.4 98.3 Pulse 82 99 88 Resp 20 18 20 B/P (MAP) 154/107 (123) 165/93 (117) 156/100 (118) Pulse Ox 96 97 97 O2 Delivery Room Air Room Air Room Air Room Air 02/11/17 02/11/17 02/11/17 02/11/17 07:00 07:51 07:51 07:56 Temp 97.7 97.7 Pulse 86 90 90 Resp 18 B/P (MAP) 166/105 (125) 166/105 166/105 Pulse Ox 98 O2 Delivery Room Air Room Air 6/29/17 6/29/17 09:28 10:09 Pulse 91 86 B/P (MAP) 187/111 172/100 Intake and Output 02/10/17 02/10/17 02/11/17 15:00 23:00 07:00 Intake Total 2000 ml Output Total 1600 ml 500 ml Balance 2000 ml -1600 ml -500 ml ARCELIA ADHIKARI MD Feb 11, 2017 10:23
--- NOTE | 2017-02-11 13:22 | EKG ---
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
--- NOTE | 2017-02-11 14:03 | PDOC ---
PROGRESS NOTES Chief Complaint Chief Complaint seizure Hypertensive urgency ASSESSMENT AND PLAN: 1. Hypertensive urgency: persisting despite mult manipulations. norvasc home dose. lisinopril apparently caused dizziness in the past, hence stopped. had cozaar this PM w/o any dent in BP; higher daily dose in AM. trial of PO clonidine. 2. ?Hemoptysis: resolved. suspect oral bleed 2/2 trauma w/ sz rather than internal bleed 3. Urinary retention: resolved. on flomax; can stop in a few days 4. Prophylaxis: lovenox, H2B History of Present Illness History of Present Illness no c/o. concerned about BP Vitals Vitals Vital Signs Date Time Temp Pulse Resp B/P (MAP) Pulse Ox O2 Delivery O2 Flow Rate FiO2 02/11/17 11:00 97.8 73 16 178/112 (134) 98 Room Air 97.8 Physical Exam General: Alert, Oriented X3, Cooperative, No acute distress Heart: Regular rate (sinus tachycardia), Normal S1, Normal S2, Other (S3; 2/6 systolic murmur to Apical region) Abdomen: Normal bowel sounds, Soft, No tenderness Extremities: No clubbing, No edema Skin: No rashes Labs LABS Laboratory Tests Test 02/10/17 15:00 02/10/17 18:48 02/11/17 04:30 Urine Collection Type Unknown Urine Color Yellow Urine Clarity Clear Urine pH 7.5 Urine Specific [place] 1.015 Urine Protein 100 mg/dL (NEG-TRACE) Urine Glucose (UA) Negative mg/dL (NEG) Urine Ketones (Stick) Negative mg/dL (NEG) Urine Blood Negative (NEG) Urine Nitrite Negative (NEG) Urine Bilirubin Negative (NEG) Urine Urobilinogen Dipstick 0.2 mg/dL (0.2 mg/dL) Urine Leukocyte Esterase Negative (NEG) Urine RBC Occ /HPF (0-2) Urine WBC 0 /HPF (0-4) Urine Bacteria 0 /HPF (0-FEW) Troponin I Quantitative 0.098 ng/mL (0.000-0.055) 0.115 ng/mL (0.000-0.055) White Blood Count 7.9 x10^3/uL (4.0-11.0) Red Blood Count 4.10 x10^6/uL (4.30-5.70) Hemoglobin 13.0 g/dL (13.0-17.5) Hematocrit 37.0 % (39.0-53.0) Mean Corpuscular Volume 90 fL (79-100) Mean Corpuscular Hemoglobin 32 pg (25-35) Mean Corpuscular Hemoglobin Concent 35 g/dL (31-37) Red Cell Distribution Width 13.2 % (11.5-14.5) Platelet Count 177 x10^3/uL (140-400) Neutrophils (%) (Auto) 66 % (31-73) Lymphocytes (%) (Auto) 22 % (24-48) Monocytes (%) (Auto) 8 % (0-9) Eosinophils (%) (Auto) 2 % (0-3) Basophils (%) (Auto) 2 % (0-3) Neutrophils # (Auto) 5.2 x10^3uL (1.8-7.7) Lymphocytes # (Auto) 1.7 x10^3/uL (1.0-4.8) Monocytes # (Auto) 0.6 x10^3/uL (0.0-1.1) Eosinophils # (Auto) 0.2 x10^3/uL (0.0-0.7) Basophils # (Auto) 0.1 x10^3/uL (0.0-0.2) Sodium Level 146 mmol/L (136-145) Potassium Level 3.6 mmol/L (3.5-5.1) Chloride Level 112 mmol/L (98-107) Carbon Dioxide Level 26 mmol/L (21-32) Anion Gap 8 (6-14) Blood Urea Nitrogen 20 mg/dL (8-26) Creatinine 1.1 mg/dL (0.7-1.3) Estimated GFR (Cockcroft-Gault) 76.2 Glucose Level 96 mg/dL (70-99) Calcium Level 8.6 mg/dL (8.5-10.1) Magnesium Level 2.3 mg/dL (1.8-2.4) Creatine Kinase 88 U/L (39-308) DALLIN CANTU MD Feb 11, 2017 14:03
[2017-02-11] MEDS ORDERED: LOSARTAN POTASSIUM 50 MG TABLET. PO ONE (14:15)
[2017-02-11] MEDS ORDERED: CARVEDILOL 12.5 MG TABLET. PO SCH ×2 (17:00)
[2017-02-11] MEDS: cloNIDine HCL 0.2 MG TABLET PO SCH ×2 (17:20→21:09)
[2017-02-11] MEDS: TAMSULOSIN 0.4 MG CAP.ER.24H. PO SCH (21:09)
[2017-02-12 03:00] VITALS: BP 131/80
[2017-02-12] MEDS: cloNIDine HCL 0.2 MG TABLET PO SCH ×2 (06:36→13:46)
[2017-02-12 07:00] VITALS: BP 141/78
[2017-02-12] MEDS ORDERED: LISINOPRIL 40 MG TABLET. PO SCH (09:00)
[2017-02-12] MEDS ORDERED: LOSARTAN POTASSIUM 50 MG TABLET. PO SCH (09:00)
--- NOTE | 2017-02-12 09:59 | RAD ---
Clinical indications: Malignant hypertension. Renal artery stenosis. Evaluation for renal scarring/atrophy. Seizures. . Findings: Duplex sonography including baker scale and color flow and spectral waveform analysis of the renal arteries and veins was performed. The peak systolic flow velocity of the right main renal artery is: Proximal: 100cm/sec Mid aspect: 78 cm/sec Distal: 78 cm/sec The peak systolic flow velocity of the left main renal artery is: Proximal: 61 cm/sec Midaspect: 54 cm/sec Distal: 23 cm/sec The peak systolic flow velocity of the abdominal aorta is 111 cm/sec. Therefore, the renal artery/aortic ratio on the right side is 0.9. Therefore, the renal artery/aortic ratio on the left side is 0.6. Color-Doppler flow is identified within the right main renal vein. Color-Doppler flow is identified within the left main renal vein. The longitudinal dimension of the right kidney is 10.2 cm. No hydronephrosis is seen. The longitudinal dimension of the left kidney is 10.8 cm. No hydronephrosis is seen. There is a small cyst of the left kidney measuring 1.8 cm. The average resistive index of the right kidney is 0.63. The average resistive index of the left kidney is 0.61. Impression: 1.No hemodynamically significant plaque formation or flow-limiting stenosis is seen within either the left or right main renal arteries. 2. No significant renal atrophy is seen on either side. 3. Spleen measures 13.0 cm in length which is at the upper limits of normal. There is a 3.5 cm complex cyst of the spleen.
[2017-02-12] MEDS: hydroCHLOROthiazide 12.5 MG CAPSULE PO SCH (10:47)
[2017-02-12] MEDS: levETIRAcetam 500 MG TABLET PO SCH (10:47)
--- NOTE | 2017-02-12 10:55 | PDOC ---
CARDIO Progress Notes Date and Time Date of Service 02/12/2017 Time of Evaluation 1030 Subjective Subjective: No Chest Pain, No shortness of breath, No Palpitations, No Dizziness Vitals Vitals Vital Signs Date Time Temp Pulse Resp B/P (MAP) Pulse Ox O2 Delivery O2 Flow Rate FiO2 02/12/17 07:00 97.6 68 19 141/78 (99) 98 Room Air 97.6 Weight Weight [ ] Input and Output Intake and Output Intake and Output 02/12/17 07:00 Intake Total 0 ml Output Total 2600 ml Balance -2600 ml Intake Oral 0 ml Output Urine Total 2600 ml Laboratory Labs Laboratory Tests Test 02/11/17 14:00 Troponin I Quantitative 0.068 ng/mL (0.000-0.055) Physical Exam HEENT: Neck Supple W Full Motion Chest: Symmetric LUNGS: Clear to Auscultation Heart: S1S2, RRR (SR) Abdomen: Soft N/T Extremities: No Calf Tenderness Neurology: alert, oriented, follow commands Assessment Assessment 1. Accelerated HTN: r/t med noncompliance. Difficult to control yesterday but now better 2. Sinus tachycardia: reactive and resolved. SB overnight due to combination of coreg and start of clonidine 3. Atypical CP: MSK with aspiration/likely esophagitis 4. Seizure: none further. Per neurology 5. Elevated troponin: Doubt ACS. Remains CP free. 0.115 demand mediated induced by HTN and seizure. TTE with normal EF and wall motion 6. Complex cyst to spleen 3.5 cm via renal duplex: defer to PCP Recommendations 1. Notable for med noncompliance. Again significant discussion regarding med compliance especially with introduction of clonidine. Discussed home BP monitoring 2. Renal duplex noted with no stenosis. Appeared to have responded well with clonidine. DC coreg and continue with HCTZ/losartan. Pt BP to be managed by outpt PCP, Dr. Alexandra. 3. Will consider for outpt stress test NEMESIO TREJO MANAGER PEST Feb 12, 2017 10:55
[2017-02-12 11:00] VITALS: BP 150/88
--- NOTE | 2017-02-12 11:08 | PDOC ---
PROGRESS NOTES Assessment Problems Medical Problems: (1) Hypertensive urgency Status: Acute Long-standing epilepsy, breakthrough seizure today. Plan Levetiracetam 500 mg twice a day I do not see a need to repeat EEG or MRI studies. Follow-up with me in 6 weeks. Subjective Dizziness better, still having trouble with blood pressure control Objective Vital Signs Date Time Temp Pulse Resp B/P (MAP) Pulse Ox O2 Delivery O2 Flow Rate FiO2 02/12/17 10:46 66 136/80 02/12/17 07:00 97.6 19 98 Room Air 97.6 Intake and Output 02/12/17 07:00 Intake Total 0 ml Output Total 2600 ml Balance -2600 ml Intake Oral 0 ml Output Urine Total 2600 ml PHYSICAL EXAM Alert. Oriented to time, place and person. PERRL. EOMI. CN: no focal findings. Muscle tone: normal. Muscle strength: 5/5 DTR: 2+ Plantar reflex: Flexor Gait: not examined in bed. Sensory exam: no abnormal findings. No cerebellar signs elicited. Review of Relevant I have reviewed the following items ray (where applicable) has been applied. Labs Laboratory Tests Test 02/10/17 15:00 02/10/17 18:48 02/11/17 04:30 02/11/17 14:00 Urine Collection Type Unknown Urine Color Yellow Urine Clarity Clear Urine pH 7.5 Urine Specific [place] 1.015 Urine Protein 100 mg/dL (NEG-TRACE) Urine Glucose (UA) Negative mg/dL (NEG) Urine Ketones (Stick) Negative mg/dL (NEG) Urine Blood Negative (NEG) Urine Nitrite Negative (NEG) Urine Bilirubin Negative (NEG) Urine Urobilinogen Dipstick 0.2 mg/dL (0.2 mg/dL) Urine Leukocyte Esterase Negative (NEG) Urine RBC Occ /HPF (0-2) Urine WBC 0 /HPF (0-4) Urine Bacteria 0 /HPF (0-FEW) Troponin I Quantitative 0.098 ng/mL (0.000-0.055) 0.115 ng/mL (0.000-0.055) 0.068 ng/mL (0.000-0.055) White Blood Count 7.9 x10^3/uL (4.0-11.0) Red Blood Count 4.10 x10^6/uL (4.30-5.70) Hemoglobin 13.0 g/dL (13.0-17.5) Hematocrit 37.0 % (39.0-53.0) Mean Corpuscular Volume 90 fL (79-100) Mean Corpuscular Hemoglobin 32 pg (25-35) Mean Corpuscular Hemoglobin Concent 35 g/dL (31-37) Red Cell Distribution Width 13.2 % (11.5-14.5) Platelet Count 177 x10^3/uL (140-400) Neutrophils (%) (Auto) 66 % (31-73) Lymphocytes (%) (Auto) 22 % (24-48) Monocytes (%) (Auto) 8 % (0-9) Eosinophils (%) (Auto) 2 % (0-3) Basophils (%) (Auto) 2 % (0-3) Neutrophils # (Auto) 5.2 x10^3uL (1.8-7.7) Lymphocytes # (Auto) 1.7 x10^3/uL (1.0-4.8) Monocytes # (Auto) 0.6 x10^3/uL (0.0-1.1) Eosinophils # (Auto) 0.2 x10^3/uL (0.0-0.7) Basophils # (Auto) 0.1 x10^3/uL (0.0-0.2) Sodium Level 146 mmol/L (136-145) Potassium Level 3.6 mmol/L (3.5-5.1) Chloride Level 112 mmol/L (98-107) Carbon Dioxide Level 26 mmol/L (21-32) Anion Gap 8 (6-14) Blood Urea Nitrogen 20 mg/dL (8-26) Creatinine 1.1 mg/dL (0.7-1.3) Estimated GFR (Cockcroft-Gault) 76.2 Glucose Level 96 mg/dL (70-99) Calcium Level 8.6 mg/dL (8.5-10.1) Magnesium Level 2.3 mg/dL (1.8-2.4) Creatine Kinase 88 U/L (39-308) Laboratory Tests Test 02/11/17 14:00 Troponin I Quantitative 0.068 ng/mL (0.000-0.055) Medications Current Medications Sodium Chloride 1,000 ml @ 1,000 mls/hr 1X ONCE IV Last administered on 10:41; Start 02/10/17 at 10:30; Stop 02/10/17 at 11:29; Status DC Hydralazine HCl (Apresoline) 10 mg 1X ONCE IVP Last administered on 02/10/17 11:21; Start 02/10/17 at 11:30; Stop 02/10/17 at 11:31; Status DC Sodium Chloride 1,000 ml @ 1,000 mls/hr 1X ONCE IV Last administered on 11:52; Start 02/10/17 at 12:00; Stop 02/10/17 at 12:59; Status DC Hydralazine HCl (Apresoline) 20 mg 1X ONCE IVP Last administered on 02/10/17 11:53; Start 02/10/17 at 12:00; Stop 02/10/17 at 12:01; Status DC Labetalol HCl (Normodyne) 20 mg PRN Q2HR PRN IVP HYPERTENSION, SEE COMMENTS Last administered on 02/11/17 09:28; Start 02/10/17 at 12:15; Stop 02/11/17 at 17:08; Status DC Ondansetron HCl (Zofran) 4 mg PRN Q8HRS PRN IV NAUSEA/VOMITING; Start 02/10/17 at 13:00; Stop 02/11/17 at 12:59; Status DC Iohexol (Omnipaque 300 Mg/ml) 75 ml 1X ONCE IV Last administered on 02/10/17 13:24; Start 02/10/17 at 13:30; Stop 02/10/17 at 13:31; Status DC Info (Do NOT chart on this entry -- for MONITORING) 1 each PRN DAILY PRN MC SEE COMMENTS; Start 02/10/17 at 13:15; Stop 02/12/17 at 13:14 Magnesium Sulfate/ Dextrose 50 ml @ 25 mls/hr 1X ONCE IV Last administered on 02/10/17 13:49; Start 02/10/17 at 14:00; Stop 02/10/17 at 15:59; Status DC Carvedilol (Coreg) 6.25 mg BIDWMEALS PO Last administered on 02/11/17 07:51; Start 02/10/17 at 17:00; Stop 02/11/17 at 09:26; Status DC Lisinopril (Prinivil) 20 mg DAILY PO Last administered on 02/11/17 07:51; Start 02/10/17 at 14:30; Stop 02/11/17 at 09:26; Status DC Levetiracetam (Keppra) 500 mg BID PO Last administered on 02/12/17 10:47; Start 02/10/17 at 14:30 Acetaminophen (Tylenol) 650 mg PRN Q6HRS PRN PO HEADACHE Last administered on 17:06; Start 02/10/17 at 17:00 Tamsulosin HCl (Flomax) 0.4 mg QHS PO Last administered on 02/11/17 21:09; Start 02/10/17 at 21:00 Carvedilol (Coreg) 12.5 mg BIDWMEALS PO ; Start 02/11/17 at 17:00; Stop at 17:00; Status DC Lisinopril (Prinivil) 40 mg DAILY PO ; Start 02/12/17 at 09:00; Stop 02/12/17 at 09:00; Status DC Hydrochlorothiazide (Microzide) 12.5 mg DAILY PO Last administered on 10:47; Start 02/11/17 at 09:30 Carvedilol (Coreg) 6.25 mg 1X ONCE PO Last administered on 02/11/17 10:09; Start 02/11/17 at 10:00; Stop 02/11/17 at 10:01; Status DC Lisinopril (Prinivil) 20 mg 1X ONCE PO ; Start 02/11/17 at 09:30; Stop at 10:26; Status DC Losartan Potassium (Cozaar) 100 mg DAILY PO Last administered on 02/12/17 10: 46; Start 02/12/17 at 09:00 Losartan Potassium (Cozaar) 50 mg 1X ONCE PO Last administered on 02/11/17 14 :19; Start 02/11/17 at 14:15; Stop 02/11/17 at 14:45; Status DC Carvedilol (Coreg) 25 mg BIDWMEALS PO Last administered on 02/11/17 16:52; Start 02/11/17 at 17:00; Stop 02/12/17 at 08:28; Status DC Clonidine HCl (Catapres) 0.2 mg Q8HRS PO Last administered on 02/11/17t 21:09; Start 02/11/17 at 17:30 Active Scripts Active Reported Amlodipine Besylate 10 Mg Tablet 10 Mg PO DAILY Triamterene-Hctz 75-50 Mg Tab (Triamterene/Hydrochlorothiazid) 1 Each Tablet 1 Tab PO DAILY Fycompa (Perampanel) 2 Mg Tablet 2 Mg PO Depakote (Divalproex Sodium) 500 Mg Tablet. 1 Tab PO BID Vitals/I & O Vital Sign - Last 24 Hours 02/11/17 02/11/17 02/11/17 02/11/17 14:19 15:00 16:52 17:20 Temp 97.8 97.8 Pulse 82 72 78 96 Resp 18 B/P (MAP) 178/104 180/105 (130) 196/107 190/116 Pulse Ox 98 O2 Delivery Room Air 02/11/17 02/11/17 02/11/17 02/11/17 18:28 19:31 19:50 21:09 Temp 98.0 98.0 Pulse 78 68 63 Resp 18 B/P (MAP) 149/84 (105) 126/82 (97) 126/82 Pulse Ox 97 O2 Delivery Room Air Room Air 02/11/17 02/12/17 02/12/17 02/12/17 23:04 03:00 06:36 07:00 Temp 97.9 97.9 97.6 97.9 97.9 97.6 Pulse 51 65 47 68 Resp 16 16 19 B/P (MAP) 145/86 (105) 131/80 (97) 141/78 (99) Pulse Ox 98 97 98 O2 Delivery Room Air Room Air Room Air 02/12/17 10:46 Pulse 66 B/P (MAP) 136/80 Intake and Output 02/11/17 02/11/17 02/12/17 15:00 23:00 07:00 Intake Total 0 ml Output Total 200 ml 2400 ml Balance -200 ml 0 ml -2400 ml ARCELIA ADHIKARI MD Feb 12, 2017 11:08
[2017-02-12] MEDS ORDERED: LEVE500T56 PO (12:49)
[2017-02-12] MEDS ORDERED: CLON0.2T10 PO (12:49)
[2017-02-12 13:46] VITALS: BP 150/88
[2017-02-12] MEDS ORDERED: HYDR-2867 PO (23:43)
== END 2017-02-12 13:55 | disposition home or self-care (01) ==
LOC: ER 10:10 → 2 NORTH 12:30 → INTOOBSV 12:30
PROVIDERS: ADMIT Internal Medicine Hematology & Oncology; ATTEND Internal Medicine Hematology & Oncology
DX: G40.909 Epilepsy, unspecified, not intractable, without status epilepticus (principal); I16.0 Hypertensive urgency; R00.0 Tachycardia, unspecified; R07.89 Other chest pain; R04.2 Hemoptysis; R79.89 Other specified abnormal findings of blood chemistry; W19.XXXA Unspecified fall, initial encounter; Y93.89 Activity, other specified; Y92.89 Other specified places as the place of occurrence of the external cause; Y99.9 Unspecified external cause status
CPT/HCPCS: 36415; 71275; 76770; 80048; 80061; 80076; 80164; 81001; 82550; 82553; 83605; 83735; 84443; 84484; 85027; 85379; 93005; 93306; 96361; 96365; 96366; 96375; 96376; 99291; G0378; G0481; J0360; J3490; J7030; J7060; Q9967; G0379

== ENCOUNTER 2017-02-12 22:16 | Emergency (ER) | payer OTHER ==
[~2017-02-12] VITALS: Ht 162.6 cm; Wt 49.4 kg
[~2017-02-12 22:16] MED LIST: AMLO10TA2 PO; AMLO2.5T PO; CLON0.2T10 PO; DIVA500T2 PO; LEVE500T56 PO; PERA2TAB PO; TRIA1TAB5 PO
--- NOTE | 2017-02-12 22:43 | PHYS DOC ---
Past Medical History Past Medical History: Hypertension, Seizure Additional Past Medical Histor: uncontrolled HTN, pt takes spouses seizure Rx of fycompa Past Surgical History: No Surgical History Alcohol Use: Rarely Drug Use: None Adult General Chief Complaint Chief Complaint: DIZZY/LIGHT HEADED HPI HPI Patient is a 36 year old male who presents with complaint of dizziness. The patient states that he was just released from the hospital earlier today for treatment of hypertension. Patient states that he was discharged on clonidine and was told to continue his amlodipine. Patient states that since starting the clonidine he has felt generalized fatigue, dizziness, and states that he has felt like he's had difficulty getting his words out. Patient denies focal weakness or difficulty with swallowing. Patient is concerned that this may be due to his clonidine. At triage the patient was found to have a blood pressure of 219/100 which the patient was unaware. The patient states that he was due for his third dose of clonidine this evening but did not take it due to his concern for the symptoms. Patient denies any chest pain, nausea, or vomiting currently. Patient states that the dizziness is present while at rest at this time. Symptoms worsen when he tries to stand up. Review of Systems Review of Systems Constitutional: Generalized fatigue, denies fever or chills [] Eyes: Denies change in visual acuity, redness, or eye pain [] HENT: Denies nasal congestion or sore throat [] Respiratory: Denies cough or shortness of breath [] Cardiovascular: Denies chest pain or edema [] GI: Denies abdominal pain, nausea, vomiting, bloody stools or diarrhea [] : Denies dysuria or hematuria [] Musculoskeletal: Denies back pain or joint pain [] Integument: Denies rash or skin lesions [] Neurologic: Dizziness, headache, focal weakness or sensory changes [] Current Medications Current Medications Current Medications Medications (Trade) Dose Ordered Sig/Cindy Start Time Stop Time Status Last Admin Dose Admin Hydralazine HCl (Apresoline) 10 mg 1X ONCE 02/12/17 23:00 02/12/17 23:01 DC 02/12/17 23:02 10 MG Hydrocodone Bitartrate/ Ibuprofen (Vicoprofen 7.5-200) 1 tab 1X ONCE 02/12/17 23:30 02/12/17 23:31 UNV Labetalol HCl (Normodyne) 20 mg 1X ONCE 02/12/17 22:45 02/12/17 22:47 DC Sodium Chloride 1,000 ml @ 100 mls/hr Q10H 02/12/17 22:45 02/13/17 08:44 02/12/17 23:03 100 MLS/HR Allergies Allergies Allergies Coded Allergies Type Severity Reaction Last Updated Verified No Known Drug Allergies 02/10/17 No Physical Exam Physical Exam Constitutional: Alert, afebrile, hypertensive, no acute distress. [] HENT: Normocephalic, atraumatic, bilateral external ears normal, oropharynx moist, no oral exudates, nose normal. [] Eyes: PERRLA, EOMI, conjunctiva normal, no discharge. [] Neck: Normal range of motion, no tenderness, supple, no stridor. [] Cardiovascular:Heart rate regular rhythm, no murmur [] Lungs & Thorax: Bilateral breath sounds clear to auscultation [] Abdomen: Bowel sounds normal, soft, no tenderness, no masses, no pulsatile masses. [] Skin: Warm, dry, no erythema, no rash. [] Back: No tenderness, no CVA tenderness. [] Extremities: No tenderness, no cyanosis, no clubbing, ROM intact, no edema. [] Neurologic: Alert and oriented X 3, normal motor function, normal sensory function, no focal deficits noted. [] Current Patient Data Vital Signs Vital Signs Date Time Temp Pulse Resp B/P (MAP) Pulse Ox O2 Delivery O2 Flow Rate FiO2 02/12/17 23:02 69 161/95 02/12/17 22:47 97.7 22 100 Room Air 97.7 Lab Values Laboratory Tests Test 02/12/17 22:30 02/12/17 22:41 White Blood Count 8.0 x10^3/uL (4.0-11.0) Red Blood Count 4.41 x10^6/uL (4.30-5.70) Hemoglobin 14.0 g/dL (13.0-17.5) Hematocrit 41.0 % (39.0-53.0) Mean Corpuscular Volume 93 fL (79-100) Mean Corpuscular Hemoglobin 32 pg (25-35) Mean Corpuscular Hemoglobin Concent 34 g/dL (31-37) Red Cell Distribution Width 13.0 % (11.5-14.5) Platelet Count 227 x10^3/uL (140-400) Neutrophils (%) (Auto) 67 % (31-73) Lymphocytes (%) (Auto) 23 % (24-48) L Monocytes (%) (Auto) 6 % (0-9) Eosinophils (%) (Auto) 3 % (0-3) Basophils (%) (Auto) 1 % (0-3) Neutrophils # (Auto) 5.4 x10^3uL (1.8-7.7) Lymphocytes # (Auto) 1.8 x10^3/uL (1.0-4.8) Monocytes # (Auto) 0.5 x10^3/uL (0.0-1.1) Eosinophils # (Auto) 0.2 x10^3/uL (0.0-0.7) Basophils # (Auto) 0.1 x10^3/uL (0.0-0.2) Sodium Level 142 mmol/L (136-145) Potassium Level 4.0 mmol/L (3.5-5.1) Chloride Level 107 mmol/L (98-107) Carbon Dioxide Level 31 mmol/L (21-32) Anion Gap 4 (6-14) L Blood Urea Nitrogen 20 mg/dL (8-26) Creatinine 1.3 mg/dL (0.7-1.3) Estimated GFR (Cockcroft-Gault) 62.8 BUN/Creatinine Ratio 15 (6-20) Glucose Level 101 mg/dL (70-99) H Calcium Level 10.6 mg/dL (8.5-10.1) H Magnesium Level 2.0 mg/dL (1.8-2.4) Total Bilirubin 0.8 mg/dL (0.2-1.0) Aspartate Amino Transferase (AST) 19 U/L (15-37) Alanine Aminotransferase (ALT) 30 U/L (16-63) Alkaline Phosphatase 116 U/L (46-116) Creatine Kinase 81 U/L (39-308) Creatine Kinase MB (Mass) 1.3 ng/mL (0.0-3.6) Creatine Kinase MB Relative Index 1.6 % (0-4) Troponin I Quantitative 0.026 ng/mL (0.000-0.055) NG-Cpu-D-Type Natriuretic Peptide 54 pg/mL (0-124) Total Protein 6.4 g/dL (6.4-8.2) Albumin 3.3 g/dL (3.4-5.0) L Albumin/Globulin Ratio 1.1 (1.0-1.7) Urine Collection Type Unknown Urine Color Yellow Urine Clarity Clear Urine pH 6.0 Urine Specific [place] <=1.005 Urine Protein 100 mg/dL (NEG-TRACE) Urine Glucose (UA) Negative mg/dL (NEG) Urine Ketones (Stick) Negative mg/dL (NEG) Urine Blood Negative (NEG) Urine Nitrite Negative (NEG) Urine Bilirubin Negative (NEG) Urine Urobilinogen Dipstick 0.2 mg/dL (0.2 mg/dL) Urine Leukocyte Esterase Negative (NEG) Urine RBC Occ /HPF (0-2) Urine WBC Occ /HPF (0-4) Urine Squamous Epithelial Cells Occ /LPF Urine Bacteria 0 /HPF (0-FEW) Urine Opiates Screen Neg (NEG) Urine Methadone Screen Neg (NEG) Urine Barbiturates Neg (NEG) Urine Phencyclidine Screen Neg (NEG) Urine Amphetamine/Methamphetamine Neg (NEG) Urine Benzodiazepines Screen Neg (NEG) Urine Cocaine Screen Neg (NEG) Urine Cannabinoids Screen Neg (NEG) Urine Ethyl Alcohol Neg (NEG) Laboratory Tests 02/12/17 22:30 Laboratory Tests 02/12/17 22:30 EKG EKG Interpreted by me: Heart rate 67, sinus rhythm, normal intervals, normal axis, no acute ST/T-wave abnormalities present [] Radiology/Procedures Radiology/Procedures Not performed [] Course & Med Decision Making Course & Med Decision Making Pertinent Labs and Imaging studies reviewed. (See chart for details) Patient was given IV hydralazine in the emergency department with adequate reduction in blood pressure. The patient's symptoms have improved on reevaluation. Due to reported intolerance to clonidine, I considered starting the patient on oral hydralazine. I consulted Dr. Betancur of internal medicine who stated that this would be inadequate medication to use in combination with amlodipine. Patient was also given his home dose of Keppra while in the emergency department. Recommended follow-up in 3-5 days with patient's primary doctor and return to emergency department for any worsening symptoms. Dragon Disclaimer Dragon Disclaimer This electronic medical record was generated, in whole or in part, using a voice recognition dictation system. Departure Departure Impression: Primary Impression: Accelerated hypertension Disposition: HOME, SELF-CARE Condition: IMPROVED Referrals: ASHTYN VALDIVIA MD (PCP) Patient Instructions: Hypertension Additional Instructions: Follow-up with your primary doctor in 3-5 days for reevaluation. Discontinue use of clonidine and begin use of hydralazine as prescribed from today's visit. You may continue to use amlodipine as prescribed previously. Return to the emergency department for any worsening symptoms. Scripts Hydralazine Hcl (HYDRALAZINE HCL) 10 Mg Tablet 1 TAB PO TID, #90 TAB 0 Refills Prov: ALEXANDRO ALVARADO MD 02/12/17 ALEXANDRO ALVARADO MD Feb 12, 2017 22:43
[2017-02-12] MEDS ORDERED: LABETALOL 20 MG/4 ML DISP.SYRIN. IVP ONE (22:45)
[2017-02-12] MEDS ORDERED: IV NORMAL SALINE 1000ML BAG 1,000 ML IV SCH (22:45)
[2017-02-12 22:52] LABS: BILIRUBIN,URINE NEGATIVE (NEG); GLUCOSE,URINE NEGATIVE (NEG); NITRITE,URINE NEGATIVE (NEG); PROTEIN,URINE 100 mg/dL (NEG-TRACE); UROBILINOGEN,URINE 0.2 mg/dL (0.2 mg/dL)
[2017-02-12 22:53] LABS: BASO # 0.1 x10^3/uL (0.0-0.2); BASO % 1 % (0-3); EOS % 3 % (0-3); LYMPH # 1.8 x10^3/uL (1.0-4.8); LYMPH % 23 % (24-48); MEAN CORPUSCULAR HEMOGLOBIN 32 pg (25-35); MEAN CORPUSCULAR HGB CONC 34 g/dL (31-37); MEAN CORPUSCULAR VOLUME 93 fL (79-100); MONO % 6 % (0-9); NEUT % 67 % (31-73); PLATELET COUNT 227 x10^3/uL (140-400); RED BLOOD COUNT 4.41 x10^6/uL (4.30-5.70)
[2017-02-12 22:58] LABS: BARBITURATES NEG (NEG); BENZODIAZEPINES NEG (NEG); CANNABINOIDS NEG (NEG); COCAINE NEG (NEG); METHADONE NEG (NEG); OPIATES NEG (NEG); PHENCYCLIDINE NEG (NEG)
[2017-02-12] MEDS ORDERED: hydrALAZINE 20 MG/ML VIAL. IVP ONE (23:00)
[2017-02-12 23:02] LABS: BACTERIA,URINE 0 /HPF (0-FEW); RBC,URINE OCC /HPF (0-2); SQUAMOUS EPITHELIAL CELL,UR OCC /LPF; WBC,URINE OCC /HPF (0-4)
[2017-02-12 23:04] LABS: CALCIUM 10.6 mg/dL (8.5-10.1); CREATININE 1.3 mg/dL (0.7-1.3); GFR 62.8
[2017-02-12 23:10] LABS: ALBUMIN 3.3 g/dL (3.4-5.0); ALBUMIN/GLOBULIN RATIO 1.1 (1.0-1.7); TOTAL BILIRUBIN 0.8 mg/dL (0.2-1.0); TOTAL PROTEIN 6.4 g/dL (6.4-8.2)
[2017-02-12 23:18] LABS: CKMB MASS 1.3 ng/mL (0.0-3.6)
[2017-02-12] MEDS ORDERED: HYDROcodon/IBUPROFEN 7.5/200MG 1 TAB TABLET PO ONE (23:30)
[2017-02-12] MEDS ORDERED: HYDR-2867 PO (23:43)
[2017-02-12 23:45] VITALS: BP 160/94
[2017-02-13] MEDS ORDERED: levETIRAcetam 500 MG TABLET PO ONE
--- NOTE | 2017-02-13 08:43 | EKG ---
[facility] [address] [place] [address] Test Date: 2017-02-12 Test Time: 22:29:19 Pat Name: YAMINI CANNON Department: Room: Gender: Video Manager: : 1980 Requested By: ALEXANDRO ALVARADO Order Number: [id number] Reading MD: Danielle Brewer Measurements Intervals [place] Rate: 67 P: 56 TN: 132 QRS: 17 QRSD: 70 T: 46 QT: 382 QTc: 406 Interpretive Statements SINUS RHYTHM NO SPECIFIC ECG ABNORMALITIES RI6.01 No previous ECG available for comparison Electronically Signed On 02-13-2017 14:33:03 CDT by Danielle Brewer
--- NOTE | 2017-02-14 19:20 | PDOC3 ---
Discharge Summary* Date of Admission: Feb 10, 2017 Date of Discharge: Feb 12, 2017 Admitting Diagnosis Seizure Accelerated HTN Problems: Final Diagnosis Seizure Accelerated HTN Med noncompliance CONSULTS Cardiology Neurology Brief Hospital Course Mr Caldera is a 36 y/o man with epilepsy since age 3, who presented to the ER with grand mal seizure. His girlfriend was more concerned about him "spitting up blood" than the seizure itself. She states that he recently has had bleeding from the mouth with sz, but never in significant amounts. This was decidedly different than before, prompting ER visit. His last sz was about 1 month ago; he has been on depakote for a long time. He himself does not recall any of the episode. EMS on site noted him to be postictal, which had cleared by the time he presented to the ER. His blood pressure was found to be significantly elevated, not responding to labetalol or hydralazine PRN, and he was admitted fir hypertensive urgency. 1. Hypertensive urgency: persisting despite mult manipulations. norvasc home dose. lisinopril apparently caused dizziness in the past, hence stopped. had cozaar this PM w/o any dent in BP. trial of PO clonidine with good BP control 2. ?Hemoptysis: resolved. suspect oral bleed 2/2 trauma w/ sz rather than internal bleed 3. Urinary retention: resolved. on flomax; can stop 4. Epilepsy: admits to not taking depakote for a couple of months, when confronted with undetectable blood depakote level. "have sz even with it" explained that no med can prevent sz completely, but hopefully significantly decrease frequency. continue on keppra Disposition/Orders: D/C to Home CONDITION AT DISCHARGE: Improved Diet: Regular Scheduled Amlodipine Besylate (Amlodipine Besylate), 10 MG PO DAILY, (Reported) Clonidine Hcl (Catapres), 0.2 MG PO Q8HRS Hydralazine Hcl (Hydralazine Hcl), 1 TAB PO TID Levetiracetam (Keppra), 500 MG PO BID Discontinued Medications Amlodipine Besylate (Amlodipine Besylate), Unknown Dose PO DAILY, (Reported) Divalproex Sodium (Depakote), 1 TAB PO BID, (Reported) Perampanel (Fycompa), 2 MG PO, (Reported) Triamterene/Hydrochlorothiazid (Triamterene-Hctz 75-50 Mg Tab), 1 TAB PO DAILY, (Reported) FOLLOW UP APPOINTMENT: find PCP [facility]! Time Spent Total time spent with patient [] minutes for coordination of care, counseling, and education. DALLIN CANTU MD Feb 14, 2017 19:20
== END 2017-02-13 00:07 | disposition home or self-care (01) ==
LOC: ER 22:16
DX: R56.9 Unspecified convulsions (principal); I10 Essential (primary) hypertension; R33.9 Retention of urine, unspecified; Z91.14 Patient's other noncompliance with medication regimen; G40.409 Other generalized epilepsy and epileptic syndromes, not intractable, without status epilepticus
CPT/HCPCS: 36415; 80053; 80305; 80320; 81001; 82553; 83735; 83880; 84484; 85027; 93005; 96361; 96374; 99285; J0360; J7030; G0481

== ENCOUNTER 2020-01-03 20:48 | Emergency (ER) | payer MEDICAID, OTHER ==
[~2020-01-03] VITALS: Ht 154.9 cm; Wt 57.0 kg
[~2020-01-03 20:48] MED LIST changes: -AMLO10TA2 PO; +AMLO10TA8 PO; -AMLO2.5T PO; +AMLO2.5T5 PO; +HYDR-2867 PO
--- NOTE | 2020-01-03 21:18 | PHYS DOC ---
Past Medical History Past Medical History: Hypertension, Seizure Additional Past Medical Histor: uncontrolled HTN, pt takes spouses seizure Rx of fycompa, URINARY RETENTION Past Surgical History: No Surgical History Smoking Status: Never Smoker Alcohol Use: Rarely Drug Use: None General Adult EDM: Chief Complaint: HEAD INJURY/TRAUMA HPI: HPI: Patient is a 39 year old male who presents with head injury after having had seizure last night. Patient is not sure exactly what time the seizure occurred and does not know duration of seizure. He does indicate that he has a history of seizures. Patient takes Keppra for the seizures and states that his last dose was last night. He states that he takes 500 mg twice daily and sometimes forgets to take his morning doses. Patient does have a headache that he rates at about a 5 out of 10. [] Review of Systems: Review of Systems: Constitutional: Denies fever or chills. [] Eyes: Denies change in visual acuity. [] Respiratory: Denies cough or shortness of breath. [] Cardiovascular: Denies chest pain or edema. [] Neurologic: Complains of headache without focal weakness or sensory changes. [] A full 10 point review of systems has been reviewed and is otherwise negative. Heart Score: Risk Factors: Risk Factors: DM, Current or recent (<one month) smoker, HTN, HLP, family history of CAD, obesity. Risk Scores: Score 0 - 3: 2.5% MACE over next 6 weeks - Discharge Home Score 4 - 6: 20.3% MACE over next 6 weeks - Admit for Clinical Observation Score 7 - 10: 72.7% MACE over next 6 weeks - Early Invasive Strategies Allergies: Allergies: Allergies Coded Allergies Type Severity Reaction Last Updated Verified No Known Drug Allergies 02/10/17 No Physical Exam: PE: Constitutional: Well developed, well nourished, no acute distress, non-toxic appearance. [] HENT: Normocephalic, with moderate to large size hematoma overlying the left side forehead, extending down to upper eyelid with ecchymosis around the left eye, oropharynx moist, no oral exudates, nose normal. [] Eyes: PERRLA, EOMI, conjunctiva normal, no discharge. [] Neck: Normal range of motion, no tenderness, supple, no stridor. [] Cardiovascular: Regular rate and rhythm [] Lungs & Thorax: Bilateral breath sounds clear to auscultation [] Abdomen: Bowel sounds normal, soft, no tenderness. [] Skin: Warm, dry, no erythema, no rash. [] Extremities: No tenderness, no cyanosis, no clubbing, ROM intact. [] Neurologic: Awake and alert, no focal deficits noted. [] EKG: EKG: [] Radiology/Procedures: Radiology/Procedures: [] Impression: PROCEDURE: CT HEAD AND MAXILLOFACIAL WO CT HEAD AND MAXILLOFACIAL WO History: Head injury. Trauma. Comparison: September 08, 2017. Technique: Noncontrast CT imaging was performed of the head and maxillofacial. Coronal and sagittal reconstructions were performed. Exposure: One or more of the following individualized dose reduction techniques were utilized for this examination: 1. Automated exposure control 2. Adjustment of the mA and/or kV according to patient size 3. Use of iterative reconstruction technique. Findings: Head CT: No intracranial hemorrhage. No mass effect. No hydrocephalus. Right neural calcifications, unchanged. Left anterior scalp soft tissue swelling and hematoma. Maxillofacial CT: No acute maxillofacial fracture. Left preseptal periorbital and facial soft tissue swelling. No retro-orbital involvement. Orbits are unremarkable. Minimal left maxillary sinus mucosal thickening. Mastoid air cells are clear. No acute calvarial fracture. Impression: Head CT: 1. No acute intracranial abnormality. 2. Left frontal scalp soft tissue swelling and hematoma. Maxillofacial CT: 1. No acute maxillofacial fracture. 2. Left preseptal periorbital and facial soft tissue swelling. Electronically signed by: Michael Garland DO (01/03/2020 9:54 PM) [facility] Course & Med Decision Making: Course & Med Decision Making Pertinent Labs and Imaging studies reviewed. (See chart for details) Patient moved to room upon arrival was evaluated by her medical staff after which an IV was established and blood work was drawn. CT imaging of the head and maxillofacial were also obtained. Patient's work-up is returned with normal CT findings. Creatinine is markedly elevated at 19.1. Patient does indicate that his last dialysis was on . I have recommended admission of the patient for further evaluation and monitoring as well as making certain that patient is able to get in for dialysis. Of note, patient's electrolytes are stable. Patient is refusing admission however and has signed AMA paperwork despite understanding that his condition may worsen and potentially even could occur. Dragon Disclaimer: Dragon Disclaimer: This electronic medical record was generated, in whole or in part, using a voice recognition dictation system. Departure Departure Impression: Primary Impression: Closed head injury Qualified Codes: S09.90XA - Unspecified injury of head, initial encounter Additional Impressions: Seizure ESRD (end stage renal disease) on dialysis Disposition: 07 AGAINST MEDICAL ADVICE Condition: IMPROVED Referrals: UNKNOWN PCP NAME (PCP) TRAVON HERMAN Jr. DO January 03, 2020 21:18
[2020-01-03 21:30] VITALS: BP 186/92
--- NOTE | 2020-01-03 21:57 | RAD ---
CT HEAD AND MAXILLOFACIAL WO History: Head injury. Trauma. Comparison: September 08, 2017. Technique: Noncontrast CT imaging was performed of the head and maxillofacial. Coronal and sagittal reconstructions were performed. Exposure: One or more of the following individualized dose reduction techniques were utilized for this examination: 1. Automated exposure control 2. Adjustment of the mA and/or kV according to patient size 3. Use of iterative reconstruction technique. Findings: Head CT: No intracranial hemorrhage. No mass effect. No hydrocephalus. Right neural calcifications, unchanged. Left anterior scalp soft tissue swelling and hematoma. Maxillofacial CT: No acute maxillofacial fracture. Left preseptal periorbital and facial soft tissue swelling. No retro-orbital involvement. Orbits are unremarkable. Minimal left maxillary sinus mucosal thickening. Mastoid air cells are clear. No acute calvarial fracture. Impression: Head CT: 1. No acute intracranial abnormality. 2. Left frontal scalp soft tissue swelling and hematoma. Maxillofacial CT: 1. No acute maxillofacial fracture. 2. Left preseptal periorbital and facial soft tissue swelling. Electronically signed by: Michael Garland DO (01/03/2020 9:54 PM) [facility]
[2020-01-03 21:58] LABS: BASO # 0.2 x10^3/uL (0.0-0.2); BASO % 1 % (0-3); EOS % 0 % (0-3); HEMATOCRIT 30.2 % (39.0-53.0); HEMOGLOBIN 10.3 g/dL (13.0-17.5); LYMPH # 0.7 x10^3/uL (1.0-4.8); LYMPH % 5 % (24-48); MEAN CORPUSCULAR HEMOGLOBIN 34 pg (25-35); MEAN CORPUSCULAR HGB CONC 34 g/dL (31-37); MEAN CORPUSCULAR VOLUME 101 fL (79-100); MONO # 1.1 x10^3/uL (0.0-1.1); MONO % 8 % (0-9); NEUT # 12.7 x10^3/uL (1.8-7.7); NEUT % 87 % (31-73); PLATELET COUNT 190 x10^3/uL (140-400); RED BLOOD COUNT 2.99 x10^6/uL (4.30-5.70); RED CELL DISTRIBUTION WIDTH 15.9 % (11.5-14.5); WHITE BLOOD COUNT 14.7 x10^3/uL (4.0-11.0)
[2020-01-03 22:04] LABS: CALCIUM 9.4 mg/dL (8.5-10.1); CREATININE 19.1 mg/dL (0.7-1.3); GFR 2.8; POTASSIUM 4.9 mmol/L (3.5-5.1)
[2020-01-03 22:10] LABS: ALBUMIN 3.8 g/dL (3.4-5.0); ALBUMIN/GLOBULIN RATIO 1.2 (1.0-1.7); TOTAL BILIRUBIN 0.8 mg/dL (0.2-1.0); TOTAL PROTEIN 6.9 g/dL (6.4-8.2)
[2020-01-03 23:01] LABS: % BASOS 2 % (0-3); % LYMPHS 2 % (24-48); % MONOS 8 % (0-10); % SEGS 88 % (35-66); PLT ESTIMATE ADEQUATE (ADEQUATE)
--- NOTE | 2020-01-04 06:42 | EKG ---
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
== END 2020-01-03 23:20 | disposition left against medical advice (07) ==
LOC: ER 20:48
DX: S05.12XA Contusion of eyeball and orbital tissues, left eye, initial encounter (principal); R56.9 Unspecified convulsions; N18.6 End stage renal disease; Z99.2 Dependence on renal dialysis; I10 Essential (primary) hypertension; X58.XXXA Exposure to other specified factors, initial encounter; Y93.89 Activity, other specified; Y92.89 Other specified places as the place of occurrence of the external cause; Y99.8 Other external cause status
CPT/HCPCS: 36415; 70450; 70486; 80053; 85007; 85025; 93005; 99285